=== PATIENT | female | born 1970 | race Caucasian/White ===

== ENCOUNTER 2024-02-01 11:17 | Outpatient (REF) | payer BC, SELFPAY ==
[2024-02-01 14:37] LABS: MANUAL DIFF FLAG NO
[2024-02-01 14:41] LABS: Basophils Absolute Auto 0.1 X10*3/uL (0.0-0.2); Basophils Percent Auto 0.9 % (0-2); Eosinophils Absolute Auto 0.1 X10*3/uL (0.0-0.4); Eosinophils Percent Auto 2.4 % (0-4); Hematocrit 38.4 % (37.0-47.0); Hemoglobin 13.3 g/dl (12.0-16.0); Imm Gran Abs Auto 0.01 X10*3/uL (0.00-0.03); Imm Gran Pct Auto 0.2 % (0.0-0.4); Lymphocytes Percent Auto 55.7 % (20-40); Mean Corpuscular HGB Conc 34.6 g/dl (31.0-35.0); Mean Corpuscular Hemoglobin 32.1 pg (27.0-33.0); Mean Corpuscular Volume 92.8 fL (80.0-98.0); Monocytes Absolute Auto 0.3 X10*3/uL (0.1-1.2); Monocytes Percent Auto 5.8 % (2-11); Neutrophils Absolute Auto 1.9 x10*3/uL (2.0-8.3); Platelet Count 188 X10*3/uL (160-400); Red Blood Count 4.14 X10*6/uL (4.20-5.50); Red Cell Distribution Width 11.9 % (11.0-16.0); White Blood Count 5.3 X10*3/uL (4.8-10.8)
[2024-02-01 14:58] LABS: Alanine Aminotransferase 11 U/L (0-31); Albumin Level 4.4 g/dL (3.5-5.0); Alkaline Phosphatase 65 U/L (39-117); Anion Gap 12 (12-20); Aspartate Amino Transferase 12 U/L (5-31); Bilirubin Direct 0.2 mg/dL (0.0-0.5); Bilirubin Total 0.5 mg/dL (0.0-1.0); Blood Urea Nitrogen 15 mg/dL (9-16); Calcium 9.3 mg/dL (8.4-10.2); Carbon Dioxide 25 mmol/L (22-29); Chloride 108 mmol/L (96-108); Cholesterol 165 mg/dL (<200); Estimated Glomerular Filt Rate 52; Glucose Random 96 mg/dL (60-115); HDL Cholesterol 79 mg/dL (>40); LDL Cholesterol Calculated 73 mg/dL (<100); Potassium 3.7 mmol/L (3.3-5.1); Sodium 141 mmol/L (135-145); Total Protein 6.6 g/dL (6.5-8.0); Triglycerides 68 mg/dL (<150)
[2024-02-01 15:14] LABS: Cortisol Random 8.2 ug/dL
[2024-02-01 15:17] LABS: Vitamin B12 868 pg/mL (200-900)
[2024-02-01 15:20] LABS: Thyroid Stimulating Hormone 1.26 uIU/mL (0.32-4.0); Vitamin D 25-OH Total 31.2 ng/mL (>30)
== END 2024-02-01 11:18 | disposition home or self-care (01) ==
LOC: HO.CHCLDS 11:17
PROVIDERS: Visit Provider Student in an Organized Health Care Education/Training Program
DX: Z13.6 Encounter for screening for cardiovascular disorders (principal); R53.83 Other fatigue; F90.2 Attention-deficit hyperactivity disorder, combined type; E55.9 Vitamin D deficiency, unspecified
CPT/HCPCS: 36415; 80048; 80061; 80076; 82306; 82533; 82607; 84443; 85025

== ENCOUNTER 2024-02-05 10:59 | Outpatient (REF) | payer BC, SELFPAY ==
[2024-02-06 03:59] LABS: ~Hepatitis C Antibody Nonreactive (Nonreactive)
[2024-02-08 17:44] LABS: HIV RNA PCR Qn Copies Not Detected Copies/mL; HIV RNA PCR Qn Log Copies Not Detected Log cps/mL
== END 2024-02-05 11:00 | disposition home or self-care (01) ==
LOC: HO.CHCLDS 10:59
PROVIDERS: Visit Provider Student in an Organized Health Care Education/Training Program
DX: Z00.00 Encounter for general adult medical examination without abnormal findings (principal)
CPT/HCPCS: 36415; 86803; 87536; 87900

== ENCOUNTER 2024-02-18 10:05 | Outpatient (REF) | payer BC, SELFPAY ==
[2024-02-18 14:43] LABS: MANUAL DIFF FLAG NO
[2024-02-18 14:54] LABS: Basophils Absolute Auto 0.1 X10*3/uL (0.0-0.2); Basophils Percent Auto 1.1 % (0-2); Eosinophils Absolute Auto 0.2 X10*3/uL (0.0-0.4); Eosinophils Percent Auto 2.8 % (0-4); Hematocrit 37.4 % (37.0-47.0); Hemoglobin 12.8 g/dl (12.0-16.0); Imm Gran Abs Auto 0.01 X10*3/uL (0.00-0.03); Imm Gran Pct Auto 0.2 % (0.0-0.4); Lymphocytes Absolute Auto 3.5 X10*3/uL (1.2-4.9); Lymphocytes Percent Auto 56.2 % (20-40); Mean Corpuscular HGB Conc 34.2 g/dl (31.0-35.0); Mean Corpuscular Hemoglobin 31.8 pg (27.0-33.0); Mean Platelet Volume 10.2 fL (9.4-12.3); Monocytes Absolute Auto 0.4 X10*3/uL (0.1-1.2); Monocytes Percent Auto 5.7 % (2-11); Neutrophils Absolute Auto 2.1 x10*3/uL (2.0-8.3); Platelet Count 186 X10*3/uL (160-400); Red Blood Count 4.02 X10*6/uL (4.20-5.50); White Blood Count 6.2 X10*3/uL (4.8-10.8)
[2024-02-18 15:49] LABS: Ferritin 60 ng/mL (10-250)
== END 2024-02-18 10:06 | disposition home or self-care (01) ==
LOC: HO.CHCLDS 10:05
PROVIDERS: Visit Provider Student in an Organized Health Care Education/Training Program
DX: E83.110 Hereditary hemochromatosis (principal)
CPT/HCPCS: 36415; 82728; 85025

== ENCOUNTER → 2024-03-11 09:57 | Outpatient (BNV) | payer BC, SELFPAY | PROVIDERS: PCP Student in an Organized Health Care Education/Training Program; Visit Provider Internal Medicine Medical Oncology | DX: E83.119 Hemochromatosis, unspecified (principal) | CPT/HCPCS: 99204; 99213 ==

== ENCOUNTER 2024-03-20 10:27 | Outpatient (REF) | payer BC, SELFPAY | END 2024-03-20 10:28 | disposition home or self-care (01) | LOC: HO.BBR 10:27 | PROVIDERS: PCP Student in an Organized Health Care Education/Training Program; Visit Provider Internal Medicine Medical Oncology | DX: Z13.89 Encounter for screening for other disorder (principal) ==

== ENCOUNTER 2024-05-30 11:24 | Outpatient (REF) | payer BC, SELFPAY ==
[2024-05-30 12:19] LABS: MANUAL DIFF FLAG NO
[2024-05-30 12:25] LABS: Basophils Absolute Auto 0.1 X10*3/uL (0.0-0.2); Basophils Percent Auto 0.9 % (0-2); Eosinophils Absolute Auto 0.2 X10*3/uL (0.0-0.4); Hematocrit 35.4 % (37.0-47.0); Hemoglobin 12.4 g/dl (12.0-16.0); Imm Gran Abs Auto 0.01 X10*3/uL (0.00-0.03); Imm Gran Pct Auto 0.2 % (0.0-0.4); Lymphocytes Absolute Auto 2.8 X10*3/uL (1.2-4.9); Lymphocytes Percent Auto 49.4 % (20-40); Mean Corpuscular Volume 94.1 fL (80.0-98.0); Mean Platelet Volume 9.9 fL (9.4-12.3); Monocytes Absolute Auto 0.5 X10*3/uL (0.1-1.2); Monocytes Percent Auto 7.9 % (2-11); Neutrophils Absolute Auto 2.2 x10*3/uL (2.0-8.3); Neutrophils Percent Auto 37.6 % (45-73); Platelet Count 161 X10*3/uL (160-400); Red Blood Count 3.76 X10*6/uL (4.20-5.50); Red Cell Distribution Width 12.2 % (11.0-16.0); White Blood Count 5.7 X10*3/uL (4.8-10.8)
[2024-05-30 13:43] LABS: Ferritin 37 ng/mL (10-250); Iron 169 mcg/dL (30-160); Percent Iron Saturation 65 % (15-50); Total Iron Binding Capacity 260 mcg/dL (228-428); Unsaturated Iron Binding 91 ug/dL
== END 2024-05-30 11:25 | disposition home or self-care (01) ==
LOC: HO.BBR 11:24
PROVIDERS: PCP Student in an Organized Health Care Education/Training Program; Visit Provider Internal Medicine Medical Oncology
DX: E83.110 Hereditary hemochromatosis (principal)
CPT/HCPCS: 36415; 82728; 83540; 85025

== ENCOUNTER 2024-06-30 10:14 | Outpatient (REF) | payer BC, SELFPAY ==
[2024-06-30 10:44] LABS: MANUAL DIFF FLAG NO
[2024-06-30 10:49] LABS: Basophils Absolute Auto 0.1 X10*3/uL (0.0-0.2); Eosinophils Absolute Auto 0.2 X10*3/uL (0.0-0.4); Eosinophils Percent Auto 3.7 % (0-4); Hematocrit 39.8 % (37.0-47.0); Hemoglobin 13.9 g/dl (12.0-16.0); Imm Gran Abs Auto 0.01 X10*3/uL (0.00-0.03); Imm Gran Pct Auto 0.2 % (0.0-0.4); Lymphocytes Absolute Auto 2.8 X10*3/uL (1.2-4.9); Lymphocytes Percent Auto 53.8 % (20-40); Mean Corpuscular HGB Conc 34.9 g/dl (31.0-35.0); Mean Corpuscular Volume 94.5 fL (80.0-98.0); Mean Platelet Volume 9.7 fL (9.4-12.3); Monocytes Absolute Auto 0.4 X10*3/uL (0.1-1.2); Monocytes Percent Auto 7.5 % (2-11); Neutrophils Absolute Auto 1.8 x10*3/uL (2.0-8.3); Neutrophils Percent Auto 33.8 % (45-73); Platelet Count 159 X10*3/uL (160-400); Red Blood Count 4.21 X10*6/uL (4.20-5.50); Red Cell Distribution Width 12.1 % (11.0-16.0); White Blood Count 5.2 X10*3/uL (4.8-10.8)
[2024-06-30 11:28] LABS: Iron 143 mcg/dL (30-160); Percent Iron Saturation 49 % (15-50); Total Iron Binding Capacity 294 mcg/dL (228-428); Unsaturated Iron Binding 151 ug/dL
[2024-06-30 11:40] LABS: Ferritin 35 ng/mL (10-250)
== END 2024-06-30 10:15 | disposition home or self-care (01) ==
LOC: HO.BBR 10:14
PROVIDERS: PCP Student in an Organized Health Care Education/Training Program; Visit Provider Internal Medicine Medical Oncology
DX: E83.110 Hereditary hemochromatosis (principal)
CPT/HCPCS: 36415; 82728; 83540; 85025

== ENCOUNTER 2024-07-31 10:20 | Outpatient (REF) | payer BC, SELFPAY ==
[2024-07-31 10:37] LABS: MANUAL DIFF FLAG NO
[2024-07-31 10:39] LABS: Basophils Absolute Auto 0.1 X10*3/uL (0.0-0.2); Basophils Percent Auto 1.3 % (0-2); Eosinophils Absolute Auto 0.2 X10*3/uL (0.0-0.4); Eosinophils Percent Auto 3.6 % (0-4); Hematocrit 36.8 % (37.0-47.0); Hemoglobin 12.9 g/dl (12.0-16.0); Imm Gran Abs Auto 0.02 X10*3/uL (0.00-0.03); Imm Gran Pct Auto 0.3 % (0.0-0.4); Lymphocytes Absolute Auto 3.4 X10*3/uL (1.2-4.9); Lymphocytes Percent Auto 52.9 % (20-40); Mean Corpuscular HGB Conc 35.1 g/dl (31.0-35.0); Mean Corpuscular Hemoglobin 32.5 pg (27.0-33.0); Mean Corpuscular Volume 92.7 fL (80.0-98.0); Mean Platelet Volume 9.7 fL (9.4-12.3); Monocytes Absolute Auto 0.3 X10*3/uL (0.1-1.2); Monocytes Percent Auto 5.4 % (2-11); Neutrophils Absolute Auto 2.3 x10*3/uL (2.0-8.3); Neutrophils Percent Auto 36.5 % (45-73); Platelet Count 169 X10*3/uL (160-400); Red Blood Count 3.97 X10*6/uL (4.20-5.50); Red Cell Distribution Width 11.9 % (11.0-16.0); White Blood Count 6.4 X10*3/uL (4.8-10.8)
[2024-07-31 11:17] LABS: Iron 78 mcg/dL (30-160); Percent Iron Saturation 28 % (15-50); Total Iron Binding Capacity 275 mcg/dL (228-428); Unsaturated Iron Binding 197 ug/dL
[2024-07-31 11:34] LABS: Ferritin 13 ng/mL (10-250)
== END 2024-07-31 10:21 | disposition home or self-care (01) ==
LOC: HO.BBR 10:20
PROVIDERS: PCP Student in an Organized Health Care Education/Training Program; Visit Provider Internal Medicine Medical Oncology
DX: E83.110 Hereditary hemochromatosis (principal)
CPT/HCPCS: 36415; 82728; 83540; 85025

== ENCOUNTER 2024-09-10 10:10 | Outpatient (REF) | payer BC, SELFPAY ==
[2024-09-10 10:34] LABS: MANUAL DIFF FLAG NO
[2024-09-10 11:11] LABS: Basophils Absolute Auto 0.1 X10*3/uL (0.0-0.2); Basophils Percent Auto 1.2 % (0-2); Eosinophils Absolute Auto 0.3 X10*3/uL (0.0-0.4); Eosinophils Percent Auto 4.9 % (0-4); Hematocrit 35.9 % (37.0-47.0); Hemoglobin 12.2 g/dl (12.0-16.0); Imm Gran Abs Auto 0.02 X10*3/uL (0.00-0.03); Imm Gran Pct Auto 0.4 % (0.0-0.4); Lymphocytes Absolute Auto 2.6 X10*3/uL (1.2-4.9); Mean Corpuscular Hemoglobin 31.6 pg (27.0-33.0); Monocytes Absolute Auto 0.3 X10*3/uL (0.1-1.2); Monocytes Percent Auto 5.6 % (2-11); Neutrophils Percent Auto 37.9 % (45-73); Platelet Count 187 X10*3/uL (160-400); Red Blood Count 3.86 X10*6/uL (4.20-5.50); Red Cell Distribution Width 11.9 % (11.0-16.0); White Blood Count 5.1 X10*3/uL (4.8-10.8)
[2024-09-10 12:44] LABS: Iron 66 mcg/dL (30-160); Percent Iron Saturation 21 % (15-50); Total Iron Binding Capacity 320 mcg/dL (228-428); Unsaturated Iron Binding 254 ug/dL
[2024-09-10 13:08] LABS: Ferritin 12 ng/mL (10-250)
== END 2024-09-10 10:11 | disposition home or self-care (01) ==
LOC: HO.BBR 10:10
PROVIDERS: PCP Student in an Organized Health Care Education/Training Program; Visit Provider Internal Medicine Medical Oncology
DX: E83.110 Hereditary hemochromatosis (principal)
CPT/HCPCS: 36415; 82728; 83540; 85025

== ENCOUNTER 2024-11-24 10:08 | Outpatient (REF) | payer BC, SELFPAY ==
[2024-11-24 10:27] LABS: MANUAL DIFF FLAG NO
[2024-11-24 10:28] LABS: Basophils Absolute Auto 0.1 X10*3/uL (0.0-0.2); Eosinophils Absolute Auto 0.2 X10*3/uL (0.0-0.4); Eosinophils Percent Auto 3.9 % (0-4); Hematocrit 36.8 % (37.0-47.0); Hemoglobin 12.6 g/dl (12.0-16.0); Imm Gran Abs Auto 0.01 X10*3/uL (0.00-0.03); Imm Gran Pct Auto 0.2 % (0.0-0.4); Lymphocytes Percent Auto 49.8 % (20-40); Mean Corpuscular HGB Conc 34.2 g/dl (31.0-35.0); Mean Corpuscular Hemoglobin 30.6 pg (27.0-33.0); Mean Corpuscular Volume 89.3 fL (80.0-98.0); Mean Platelet Volume 9.4 fL (9.4-12.3); Monocytes Absolute Auto 0.4 X10*3/uL (0.1-1.2); Monocytes Percent Auto 6.4 % (2-11); Neutrophils Absolute Auto 2.4 x10*3/uL (2.0-8.3); Neutrophils Percent Auto 38.7 % (45-73); Platelet Count 193 X10*3/uL (160-400); Red Blood Count 4.12 X10*6/uL (4.20-5.50); White Blood Count 6.1 X10*3/uL (4.8-10.8)
[2024-11-24 11:14] LABS: Iron 46 mcg/dL (30-160); Percent Iron Saturation 15 % (15-50); Total Iron Binding Capacity 305 mcg/dL (228-428); Unsaturated Iron Binding 259 ug/dL
[2024-11-24 11:32] LABS: Ferritin 6 ng/mL (10-250)
== END 2024-11-24 10:09 | disposition home or self-care (01) ==
LOC: HO.BBR 10:08
PROVIDERS: PCP Student in an Organized Health Care Education/Training Program; Visit Provider Internal Medicine Medical Oncology
DX: E83.110 Hereditary hemochromatosis (principal)
CPT/HCPCS: 36415; 82728; 83540; 85025

== ENCOUNTER 2025-01-13 09:47 | Outpatient (REF) | payer BC, SELFPAY ==
[2025-01-13 10:01] LABS: MANUAL DIFF FLAG NO
[2025-01-13 10:05] LABS: Basophils Absolute Auto 0.1 X10*3/uL (0.0-0.2); Basophils Percent Auto 0.9 % (0-2); Eosinophils Absolute Auto 0.2 X10*3/uL (0.0-0.4); Hematocrit 34.7 % (37.0-47.0); Hemoglobin 11.5 g/dl (12.0-16.0); Imm Gran Abs Auto 0.01 X10*3/uL (0.00-0.03); Imm Gran Pct Auto 0.2 % (0.0-0.4); Lymphocytes Absolute Auto 2.7 X10*3/uL (1.2-4.9); Lymphocytes Percent Auto 48.1 % (20-40); Mean Corpuscular HGB Conc 33.1 g/dl (31.0-35.0); Mean Corpuscular Hemoglobin 29.2 pg (27.0-33.0); Mean Corpuscular Volume 88.1 fL (80.0-98.0); Mean Platelet Volume 9.7 fL (9.4-12.3); Monocytes Absolute Auto 0.4 X10*3/uL (0.1-1.2); Monocytes Percent Auto 6.8 % (2-11); Neutrophils Absolute Auto 2.3 x10*3/uL (2.0-8.3); Platelet Count 218 X10*3/uL (160-400); Red Blood Count 3.94 X10*6/uL (4.20-5.50); Red Cell Distribution Width 12.7 % (11.0-16.0); White Blood Count 5.7 X10*3/uL (4.8-10.8)
[2025-01-13 10:40] LABS: Iron 57 mcg/dL (30-160); Percent Iron Saturation 17 % (15-50); Total Iron Binding Capacity 345 mcg/dL (228-428); Unsaturated Iron Binding 288 ug/dL
[2025-01-13 10:55] LABS: Ferritin 7 ng/mL (10-250)
--- OUTSIDE RECORDS SUMMARY | 2025-01-13 11:16 | XMS_ITS | Encounter Summary ---
Author Organization [employer] Address [address] [facility] 7t [place] [address] Care Team Providers Care Wooden Fence Erector Name Role Phone Kimberly Spear MD Primary Care Provider [phone] Encounter Details Date Type Department Care Team (Late st Contact Info) Description 01/05/2023 Orders Only [facility] CH[facility] MED & PEDS [address] [place], [place] [phone] Kimberly Spear MD [address] [place] [address] Attention deficit hyperactivity disorder (ADHD), predominantly inattentive type; Persistent depressive disorder Social History Tobacco Use Types Packs/Day Years Used Date Smoking Tobacco: Never Assessed Comments Unknown Sex and Gender Information Value Date Recorded Sex Assigned at Female 09/11/2022 10:37 AM EDT Legal Sex Female 10:37 AM EDT Gender Identity Female 09/11/2022 10:37 AM EDT Sexual Orientation Straight 09/11/2022 10 :37 AM EDT documented as of this encounter Plan of Treatment Not on file documented as of this encounter Visit Diagnoses Diagnosis Attention deficit hyperactivity disorder (ADHD), predominantly inattentive type Persistent depressive disorder documented in this encounter Care Teams Wooden Fence Erector Relationship Specialty Start Date End Date Kimberly Spear MD [address] [place] [id number] PCP - General Family Medicine 09/21/20 documented as of this encounter
--- OUTSIDE RECORDS SUMMARY | 2025-01-13 11:16 | XMS_ITS | Clinical Summary ---
Author Organization [employer] Address [address] 7[address] [place] [address] Care Team Providers Care Soft Work Cigar Machine Operator Name Role Phone Kimberly Spear MD Primary Care Provider [phone] Allergies No known active allergies Medications * This document contains information received from the source organization and may not represent a complete record from that organization. methylphenidate (Ritalin) 20 MG tablet Take 1 tablet (20 mg) by mouth Once per day. 30 tablet 4 Active FLUoxetine (PROzac) 20 MG capsuleIndications :Persistent depressive disorder Take 2 capsules (40 mg) by mouth Once per day. 60 capsule 11 4 03/24/20 25 Active Methylphenidate HCl (methylphenidate ER) 36 MG 24 hr tabletIndications: Attention deficit hyperactivity disorder (ADHD), predominantly inattentive type Take 2 tablets (72 mg) by mouth Once per day. Do not crush, chew, or split. 60 tablet 5 Active Active Problems Problem Noted Date Diagnosed Date Left bundle-branch block, unspecified 03/24/2024 Attention deficit hyperactiv ity disorder (ADHD), combined type 01/01/2024 Hereditary hemochromatosis 01/01/2024 Depressive disorder 01/01/2024 Encounters Date Type Department Care Team Description 11/24/2024 Orders Only [facility] CH[facility] MED & PEDS [address] [place] [address] Kimberly Spear MD Attention deficit hyperactivity disorder (ADHD), predominantly inattentive type from Last 3 Months Immunizations Name Administration Dates Next Due Tdap 02/05/2024 Social History Tobacco Use Types Packs/Day Years Used Date Smoking Tobacco: Never Smokeless Tobacco: Never Tobacco Cessation:Counseling Given: Not Answered Alcohol Use Standard Drinks/Week Comments Never 0 (1 standard drink = 0.6 oz pur e alcohol) Depression Answer Date Recorded Patient Health Questionnaire-9 Score 4 01/01/2024 Patient Health Questionnaire-9 Score 4 01/01/2024 Last PHQ-9: Questionnaire Data Not on file 0 01/01/2024 Housing Stability Answer Date Recorded What is your housing situation today? I have tiffanie izquierdo 02/05/[address] you li ve. Do you have problems with any of the following? None of the above 02/05/2024 Food Insecurity Answer Date Recorded Within the past 12 months, y ou worried that your food would run out before you got money to buy more: Never True 02/05/2024 Within the past 12 months,th e food you bought just didn't last and you didn't have enough money to get more: Never True Transportation Answer Date Recorded In the past 12 months, has l ack of transportation kept you from medical appts, meetings, work or from getting things needed for daily living? No 02/05/2024 Utilities Answer Date Recorded In the past 12 months, has t he electric, gas, oil or water company threatened to shut off services in your home? No 02/05/2024 Depression Answer Date Recorded Patient Health Questionnaire-2 Score 2 01/01/2024 Comments Unknown Sex and Gender Information Value Date Recorded Sex Assigned at Female 09/11/2022 10:37 AM EDT Legal Sex Female 10:37 AM EDT Gender Identity Female 09/11/2022 10:37 AM EDT Sexual Orientation Straight 09/11/2022 10 :37 AM EDT Last Filed Vital Signs Vital Sign Reading Time Taken Comments Blood Pressure 165/82 02/05/2024 10:31 AM EDT Pulse 82 02/05/2024 10:31 AM EDT Temperature 36.8 ??C (98.2 ??F) 02/05/2024 10:31 AM E DT Respiratory Rate 14 02/05/2024 10:31 AM EDT Oxygen Saturation 100% 02/05/2024 10:31 AM EDT Inhaled Oxygen Concentration - - Weight 71.7 kg (158 lb) 02/05/2024 10:31 AM EDT Height - - Body Mass Index - - Plan of Treatment Health Maintenance Due Date Last Done Comments CT Colonography 1972 Colonoscopy 1972 Colorectal Cancer Screening 1972 FIT DNA/Cologuard 1972 FIT 1972 FOBT 1972 HIV Screening 1972 Sigmoidoscopy 1972 Alcohol/Substance Use Screening 1984 Family Planning (PISQ) 1987 Hepatitis B Vaccines (1 of 3 - 19+ 3-dose series) 1991 Pap Smear 1993 Cervical Cancer Screening 2002 HPV/Cotest 2002 Pneumococcal Vaccine: 50+ Years (1 of 1 - PCV) 2022 Zoster Vaccines (1 of 2) 2022 COVID-19 Vaccine ( - 2023-2 5 season) 2024 04/05/2021, 03/15/2021 Influenza Vaccine (#1) 2024 Mammogram 12/12/2024 12/12/2023 Depression Screening 01/01/2025 01/01/2024, 01/01/2024 SDOH Screening 02/04/2025 02/05/2024 Tobacco Screening 09/10/2025 09/10/2024 DTaP/Tdap/Td Vaccines (2 - T d or Tdap) 02/04/2034 02/05/2024 RSV Patients and Patients Aged 60 years or older (1 - 1-dose 75+ series) 2047 Hepatitis C Screening Completed 02/05/2024 HIB Vaccines Aged Out No longer eligi ble based on patient's age to complete this topic HPV Vaccines Aged Out No longer eligi ble based on patient's age to complete this topic Hepatitis A Vaccines Aged Out No long er eligible based on patient's age to complete this topic IPV Vaccines Aged Out No longer eligi ble based on patient's age to complete this topic Meningococcal Vaccine Aged Out No tootie sri eligible based on patient's age to complete this topic RSV under 20 months Aged Out No longe r eligible based on patient's age to complete this topic Rotavirus Vaccines Aged Out No longer eligible based on patient's age to complete this topic Procedures Procedure Name Priority Date/Time Associated Diagnosis Comments HEPATITIS C AB W/REFL TO HCV RNA, QN, PCR Routine 02/05/2024 11:01 AM EDT PE (physical exam), annual from Last 3 Months or Most Recently Relevant to Health Maintenance Results * Hepatitis C Antibody with Reflex to HCV, RNA, Quantitative, Real-Time PCR (02/05/2024 11:01 AM EDT) Hepatitis C Antibody Nonreactive Nonreactive [facility] Comment:Antibodies to HCV no t detected; does not exclude early acuteHCV infection. Blood Venous blood specimen / Unknown 02/05/2024 11:01 AM EDT 02/05/2024 2:12 PM EDT us Kimberly Spear MD LAB BLOOD ORDERABLES Final Resul t [facility] [address] [place] [address] [phone] from Last 3 Months or Most Recently Relevant to Health Maintenance Insurance [facility] Care Teams Soft Work Cigar Machine Operator Relationship Specialty Start Date End Date Kimberly Spear MD [address] [place] [id number] PCP - General Family Medicine 09/21/20
== END 2025-01-13 09:48 | disposition home or self-care (01) ==
LOC: HO.BBR 09:47
PROVIDERS: PCP Student in an Organized Health Care Education/Training Program; Visit Provider Internal Medicine Medical Oncology
DX: E83.110 Hereditary hemochromatosis (principal)
CPT/HCPCS: 36415; 82728; 83540; 85025

== ENCOUNTER 2025-03-16 10:04 | Outpatient (REF) | payer BC, SELFPAY ==
[2025-03-16 10:20] LABS: MANUAL DIFF FLAG NO
[2025-03-16 10:22] LABS: Basophils Absolute Auto 0.1 X10*3/uL (0.0-0.2); Basophils Percent Auto 1.1 % (0-2); Eosinophils Absolute Auto 0.3 X10*3/uL (0.0-0.4); Eosinophils Percent Auto 4.6 % (0-4); Hematocrit 36.3 % (37.0-47.0); Hemoglobin 12.1 g/dl (12.0-16.0); Lymphocytes Absolute Auto 3.3 X10*3/uL (1.2-4.9); Lymphocytes Percent Auto 52.1 % (20-40); Mean Corpuscular HGB Conc 33.3 g/dl (31.0-35.0); Mean Corpuscular Hemoglobin 29.2 pg (27.0-33.0); Mean Corpuscular Volume 87.7 fL (80.0-98.0); Mean Platelet Volume 9.9 fL (9.4-12.3); Monocytes Absolute Auto 0.4 X10*3/uL (0.1-1.2); Monocytes Percent Auto 6.2 % (2-11); Neutrophils Absolute Auto 2.3 x10*3/uL (2.0-8.3); Platelet Count 194 X10*3/uL (160-400); Red Blood Count 4.14 X10*6/uL (4.20-5.50); Red Cell Distribution Width 13.8 % (11.0-16.0); White Blood Count 6.3 X10*3/uL (4.8-10.8)
--- OUTSIDE RECORDS SUMMARY | 2025-03-16 11:22 | XMS_ITS | Clinical Summary ---
Author Organization [employer] Address [address] [facility] 7t [place] [address] Care Team Providers Care Automation Engineering Technician Name Role Phone Kimberly Spear MD Primary Care Provider Allergies No known active allergies Medications * [...] Encounters Date Type Department Care Team Description 02/12/2025 Orders Only [facility] MED & PEDS [address] [place], [place] [phone] [place] 01/28/2025 Telephone [facility] MED & PEDS [address] [place], [place] [phone] Kimberly Spear MD from Last 3 Months Immunizations Name Administration [...] of 3 - 19+ 3-dose series) 1991 Pneumococcal Vaccine: 50+ Years (1 of 1 - PCV) 2022 Zoster Vaccines (1 of 2) 2022 COVID-19 Vaccine (2023-2 5 season) 2024 04/05/2021, 03/15/2021 Influenza Vaccine (#1) 2024 Mammogram 12/12/2024 12/12/2023 Depression Screening 01/01/2025 01/01/2024, 01/01/2024 SDOH Screening 02/04/2025 02/05/2024 Tobacco Screening 09/10/2025 09/10/2024 Cervical Cancer Screening 12/21/2026 HPV/Cotest 12/21/2026 12/21/2021 Pap Smear 12/21/2026 12/21/2021 DTaP/Tdap/Td Vaccines (2 - T d or [...] 11:01 AM EDT PE (physical exam), annual PAP/HPV Routine 12/21/2021 12:00 AM EST from Last 3 Months or Most Recently Relevant to Health Maintenance Results * Hepatitis C Antibody with Reflex to HCV, RNA, Quantitative, Real-Time PCR (02/05/2024 11:01 AM EDT) Hepatitis C Antibody Nonreactive Nonreactive [facility] Comment:Antibodies to HCV no t detected; does not exclude early acuteHCV infection. Blood Venous blood specimen / Unknown 02/05/2024 11:01 AM EDT 02/05/2024 2:12 PM EDT Kimberly Spear MD LAB BLOOD ORDERABLES Final Resul t [facility] [address] [place] [address] [phone] * PAP/HPV (12/21/2021 12:00 AM EST) Pap Smear 1. NILM 1. NILM [facility] HPV Not Detected Undetected, Indeterminat e, Quantitative , Not Detected [facility] Historical Provider HEALTH MAINTENANCE Edited Result - Final [facility] [address] [place] [phone] from Last 3 Months or Most Recently Relevant to Health Maintenance Insurance [facility] Address[facility] [id number] [place] [address] Care Teams Automation Engineering Technician Relationship Specialty Start Date End Date Kimberly Spear MD [address] [place] [phone] PCP - General Family Medicine 09/21/20
--- OUTSIDE RECORDS SUMMARY | 2025-03-16 11:22 | XMS_ITS | Encounter Summary ---
Author Organization [employer] Address [address] [facility] 7t [place] [address] Care Team Providers Care Gluing Machine Adjuster Name Role Phone Kimberly Spear MD Primary Care Provider [phone] Encounter Details Date Type Department Care Team (Late st Contact Info) Description 01/05/2023 Orders Only [facility] CHC MED & PEDS [address] [place], [place] [phone] Kimberly Spear MD [address] [place] [address] Attention deficit hyperactivity disorder (ADHD), predominantly inattentive [...] disorder documented in this encounter Care Teams Gluing Machine Adjuster Relationship Specialty Start Date End Date Kimberly Spear MD [address] [place] [id number] PCP - General Family Medicine 09/21/20 documented as of this encounter
--- OUTSIDE RECORDS SUMMARY | 2025-03-16 11:22 | XMS_ITS | Encounter Summary ---
Author Organization [employer] Address [address] [facility] 7[address] [place] [address] Care Team Providers Care Engineering Systems Analyst Name Role Phone Kimberly Spear MD Primary Care Provider [phone] Encounter Details Date Type Department Care Team (Late st Contact Info) Description 02/12/2025 Orders Only [facility] CHC MED & PEDS [address] [place] [address] [place] Social History Tobacco Use Types Packs/Day Years Used Date Smoking Tobacco: Never Smokeless Tobacco: Never Alcohol Use Standard Drinks/Week Comments Never 0 [...] on file documented as of this encounter Procedures Procedure Name Priority Date/Time Associated Diagnosis Comments PAP/HPV Routine 12/21/2021 12:00 AM EST documented in this encounter Results * HM PAP/HPV (12/21/2021 12:00 AM EST) Pap Smear 1. NILM 1. NILM [facility] HPV Not Detected Undetected, Indeterminat e, Quantitative , Not Detected [facility] us Historical Provider [facility] MAINTENANCE Edited Result - Final [facility] [address] [place] [address] documented in this encounter Visit Diagnoses Not on filedocumented in this encounter Additional Health Concerns Assessment Noted Time PHQ-9 Depression Total Score: 4 01/01/20 24 11:07 AM EST documented as of this encounter Care Teams Engineering Systems Analyst Relationship Specialty Start Date End Date Kimberly Spear MD [address] [place] [phone] PCP - General Family Medicine 09/21/20 documented as of this encounter
[2025-03-16 11:35] LABS: Ferritin 8 ng/mL (10-250); Iron 77 mcg/dL (30-160); Percent Iron Saturation 24 % (15-50); Total Iron Binding Capacity 322 mcg/dL (228-428); Unsaturated Iron Binding 245 ug/dL
== END 2025-03-16 10:05 | disposition home or self-care (01) ==
LOC: HO.BBR 10:04
PROVIDERS: PCP Student in an Organized Health Care Education/Training Program; Visit Provider Internal Medicine Medical Oncology
DX: E83.110 Hereditary hemochromatosis (principal)
CPT/HCPCS: 36415; 82728; 83540; 85025

== ENCOUNTER 2025-05-22 14:02 | Outpatient (REF) | payer BC, SELFPAY ==
--- OUTSIDE RECORDS SUMMARY | 2025-05-22 14:06 | XMS_ITS | Clinical Summary ---
Author Organization [facility] Address [address] [place] [address] Care Team Providers Care Paint Brush Maker Name Role Phone Diann Pantoja MD Primary Care Provider Encounters Date Type Department Care Team Description 05/22/2025 Telephone [facility] Cardiology [facility] [address] [place] [address] Kimberly Spear MD from Last 3 Months Social History Tobacco Use Types Packs/Day Years Used Date Smoking Tobacco: Never Assessed Comments Unknown Sex and Gender Information Value Date Recorded Sex Assigned at Not on file Legal Sex Female 8:08 AM EST Gender Identity Not on file Sexual Orientation Not on file Plan of Treatment Health Maintenance Due Date Last Done Comments Breast Cancer Screening 1972 DTaP,Tdap,and Td Vaccines (1 - Tdap) 1991 Hepatitis B Vaccines (1 of 3 - 19+ 3-dose series) 1991 Cervical Cancer Screening: P ap Smear 1993 Pneumococcal Vaccine: 50+ Ye ars (1 of 1 - PCV) 2022 Zoster Vaccines (1 of 2) 2022 Colorectal Cancer Screening: Colonoscopy 10/15/2022 Depression Screening 10/15/2022 HIV Screening 10/15/2022 Hepatitis C Screening 10/15/2022 Social Influencers of Health Screening 10/15/2022 COVID-19 Vaccine (1 - 2023-2 5 season) 2024 Influenza Vaccine (#1) 2025 HIB Vaccines Aged Out No longer eligi [...] on patient's age to complete this topic MMR Vaccines Aged Out No longer eligi ble based on patient's age to complete this topic Meningococcal ACWY Vaccine Aged Out N o longer eligible based on patient's age to complete this topic Meningococcal B Vaccine Aged Out No l onger eligible based on patient's age to complete this topic RSV Immunization Patients Un shanthi 20 months Aged Out No longer eligible b ased on patient's age to complete this topic Varicella Vaccines Aged Out No longer eligible based on patient's age to complete this topic Care Teams Paint Brush Maker Relationship Specialty Start Date End Date Diann Pantoja MD PCP - General Internal Medicine 12/15/19
--- OUTSIDE RECORDS SUMMARY | 2025-05-22 14:06 | XMS_ITS | Encounter Summary ---
Author Organization [employer] Address [address] [facility] 7t [place] [address] Care Team Providers Care Web Developer Name Role Phone Kimberly Spear MD Primary Care Provider [phone] Encounter Details Date Type Department Care Team (Late st Contact Info) Description 01/05/2023 Orders Only [facility] CHC MED & PEDS [address] [place], [place] [phone] Kimberly Spear MD [address] [place] [address] Attention deficit hyperactivity disorder (ADHD), predominantly inattentive [...] disorder documented in this encounter Care Teams Web Developer Relationship Specialty Start Date End Date Kimberly Spear MD [address] [place] [phone] PCP - General Family Medicine 09/21/20 documented as of this encounter
[2025-05-22 14:20] LABS: MANUAL DIFF FLAG NO
[2025-05-22 14:22] LABS: Hematocrit 33.4 % (37.0-47.0); Hemoglobin 11.2 g/dl (12.0-16.0); Imm Gran Abs Auto 0.01 X10*3/uL (0.00-0.03); Imm Gran Pct Auto 0.2 % (0.0-0.4); Lymphocytes Absolute Auto 3.2 X10*3/uL (1.2-4.9); Mean Corpuscular HGB Conc 33.5 g/dl (31.0-35.0); Mean Corpuscular Hemoglobin 29.2 pg (27.0-33.0); Mean Corpuscular Volume 87.0 fL (80.0-98.0); NRBC Abs Auto 0.000 X10*3/uL (0.0-0.012); NRBC Pct Auto 0.0 /100WBC (0.0-0.2); Platelet Count 204 X10*3/uL (160-400); Red Blood Count 3.84 X10*6/uL (4.20-5.50); White Blood Count 6.1 X10*3/uL (4.8-10.8)
[2025-05-22 15:12] LABS: Iron 100 mcg/dL (30-160); Percent Iron Saturation 28 % (15-50); Total Iron Binding Capacity 356 mcg/dL (228-428); Unsaturated Iron Binding 256 ug/dL
[2025-05-22 15:32] LABS: Ferritin 9 ng/mL (10-250)
== END 2025-05-22 14:03 | disposition home or self-care (01) ==
LOC: HO.BBR 14:02
PROVIDERS: PCP Student in an Organized Health Care Education/Training Program; Visit Provider Internal Medicine Medical Oncology
DX: E83.110 Hereditary hemochromatosis (principal)
CPT/HCPCS: 36415; 82728; 83540; 85025

== ENCOUNTER 2025-07-24 10:38 | Outpatient (REF) | payer BC, SELFPAY ==
[2025-07-24 10:59] LABS: MANUAL DIFF FLAG NO
[2025-07-24 11:02] LABS: Hematocrit 38.5 % (37.0-47.0); Hemoglobin 12.7 g/dl (12.0-16.0); Imm Gran Abs Auto 0.01 X10*3/uL (0.00-0.03); Imm Gran Pct Auto 0.2 % (0.0-0.4); Lymphocytes Absolute Auto 3.3 X10*3/uL (1.2-4.9); Mean Corpuscular HGB Conc 33.0 g/dl (31.0-35.0); Mean Corpuscular Hemoglobin 29.1 pg (27.0-33.0); Mean Corpuscular Volume 88.3 fL (80.0-98.0); NRBC Abs Auto 0.000 X10*3/uL (0.0-0.012); NRBC Pct Auto 0.0 /100WBC (0.0-0.2); Platelet Count 177 X10*3/uL (160-400); Red Blood Count 4.36 X10*6/uL (4.20-5.50); White Blood Count 6.0 X10*3/uL (4.8-10.8)
--- OUTSIDE RECORDS SUMMARY | 2025-07-24 12:14 | XMS_ITS | Clinical Summary ---
Author Organization [facility] [employer] [facility] Address [address] [place] [address] Phone Care Team Providers Care Instrumentation Designer Name Role Phone Kimberly Spear MD Primary Care Provider [phone] Allergies No known active allergies Medications methylphenidate (RITALIN LA) 30 mg 24 hr capsule Take 1 capsule (30 mg total) by mouth 1 (one) time each day in the morning. Do not crush or chew. Max Daily Amount: 30 mg Active docosahexaenoic acid/epa (FISH OIL ORAL) Take by mouth 1 (one) time each day. Active fexofenadine (NYDIA) 60 mg tablet Take 1 tablet (60 mg total) by mouth 1 (one) time each day. Active sacubitriL-vals ritu (ENTRESTO) 24-26 mg per tablet Take 1 tablet by mouth 2 (two) times a day. 180 tablet 1 5 07/10/20 26 Active losartan (COZAAR) 50 mg tablet Take 1 tablet (50 mg total) by mouth 1 (one) time each day. 5 07/10/20 25 Discontinu ed(Prescri jaya Discontinu ed) Active Problems Problem Noted Date Diagnosed Date LBBB (left bundle branch block) 06/08/2025 Assessment & Plan (06/09/2025 1:12 PM EDT): Orders: Ambulatory referral to Cardiology ECG [address] Angio Heart w 3D Imaging/Function; Future Encounters Date Type Department Care Team Description 07/10/2025 Telephone [facility] [address] [place] [address] Christiano Christianson MD 06/18/2025 Telephone [facility] [address] [place] [address] Christiano Christianson MD 06/09/2025 9:20 AM EDT Office Visit [facility] [address] [place] [address] Christiano Christianson MD Other cardiomyopathy (CMS/HCC V24, CMS/HCC V28) (Primary Dx); LBBB (left bundle branch block); Nonrheumatic mitral (valve) insufficiency 05/25/[address] [facility] [address] [facility] [place] [facility] [address] [place] [address] Kimberly Spear MD 05/25/[address] [facility] [address] [facility] [place] [facility] [address] [place] [address] Kimberly Spear MD 05/22/[address] [facility] [address] [facility] [place] [facility] [address] [place] [address] Kimberly Spear MD from Last 3 Months Social History Tobacco Use Types Packs/Day Years Used Date Smoking Tobacco: Never Tobacco Cessation:Counseling Given: Not Answered Alcohol Use Standard Drinks/Week Comments Yes 0 (1 standard drink = 0.6 oz pur e alcohol) 1-2 weekly Comments Unknown Sex and Gender Information Value Date Recorded Sex Assigned at Not on file Legal Sex Female 8:08 AM EST Gender Identity Not on file Sexual Orientation Not on file Obstetrics History Last Filed Vital Signs Vital Sign Reading Time Taken Comments Blood Pressure 140/86 06/09/2025 9:27 AM EDT Pulse 77 06/09/2025 9:27 AM EDT Temperature - - Respiratory Rate - - Oxygen Saturation 98% 06/09/2025 9:27 AM EDT Inhaled Oxygen Concentration - - Weight 77.1 kg (170 lb) 06/09/2025 9:27 AM EDT Height 165.1 cm (5' 5 ) 06/09/2025 9:27 AM EDT Body Mass Index 28.29 06/09/2025 9:27 AM EDT Plan of Treatment Health Maintenance Due Date Last Done Comments Breast Cancer Screening 1972 Hepatitis B Vaccines (1 of 3 - 19+ 3-dose series) 1991 Cervical Cancer Screening: P ap Smear 1993 Pneumococcal Vaccine: 50+ Years (1 of 1 - PCV) 2022 Zoster Vaccines (1 of 2) 2022 Colorectal Cancer Screening: Colonoscopy 10/15/2022 HIV Screening 10/15/2022 Social Influencers of Health Screening 10/15/2022 Depression Screening 11/12/2024 COVID-19 Vaccine (3 - 2024-2 6 season) 2025 04/05/2021, 03/15/2021 Influenza Vaccine (#1) 2025 DTaP,Tdap,and Td Vaccines (2 - Td or Tdap) 02/04/2034 02/05/2024 Hepatitis C Screening Completed 02/05/2024 HIB Vaccines [...] to complete this topic RSV Immunization Patients Under 20 months Aged Out No longer eligible b ased on patient's age to complete this topic Varicella Vaccines Aged Out No longer eligible based on patient's age to complete this topic Procedures Procedure Name Priority Date/Time Associated Diagnosis Comments ECG 12-LEAD Routine 06/09/2025 9:37 AM EDT LBBB (left bundle branch block) from Last 3 Months Results * ECG 12 lead (06/09/2025 9:37 AM EDT) Ventricular Rate ECG 77 BPM GEMUSE Atrial Rate 77 BPM GEMUSE P-R Interval 152 ms GEMUSE QRS Duration 128 ms GEMUSE Q-T Interval 412 ms GEMUSE QTc 466 ms GEMUSE P Wave [place] 67 degrees GEMUSE R [place] 8 degrees GEMUSE T [place] -101 degrees GEMUSE ECG Interpretation Normal sinus rhythm Left bundle branch block Abnormal ECG No previous ECGs available Confirmed by MD Sammy, Christiano ([id number]) on 06/09/2025 9:47:31 AM GEMUSE 06/09/2025 9:37 AM EDT 06/09/2025 9:47 AM EDT us Christiano Christianson MD ECG ORDERABLES Final Res ult GEMUSE from Last [address] [facility] Care Teams Instrumentation Designer Relationship Specialty Start Date End Date Kimberly Spear MD [address] [place] [phone] PCP - General Family Medicine 05/25/25
--- OUTSIDE RECORDS SUMMARY | 2025-07-24 12:14 | XMS_ITS | Clinical Summary ---
Author Organization [employer] Address [address] [facility] 7t [place] [address] Care Team Providers Care Silver Holloware Assembler Name Role Phone Kimberly Spear MD Primary Care Provider [phone] Allergies No known active allergies Medications * This document contains information received from the source organization and may not represent a complete record from that organization. methylphenidate (Ritalin) 20 MG tablet Take 1 tablet (20 mg) by mouth Once per day. 30 tablet 03/24/20 24 Active Methylphenidate HCl (methylphenidate ER) 36 MG 24 hr tabletIndications :Attention deficit hyperactivity disorder (ADHD), predominantly inattentive type Take 2 tablets (72 mg) by mouth Once per day. Do not crush, chew, or split. 60 tablet 07/06/20 25 025 Active Methylphenidate HCl (methylphenidate ER) 36 MG 24 hr tabletIndications :Attention deficit hyperactivity disorder (ADHD), predominantly inattentive type Take 2 tablets (72 mg) by mouth Once per day. Do not crush, chew, or split. 60 tablet 05/29/20 25 025 Discontinued(Re order (will not trigger notification to Pharmacy)) Active Problems Problem Noted Date Diagnosed Date Left bundle-branch block, unspecified 03/24/2024 Attention deficit hyperactiv ity disorder (ADHD), combined type 01/01/2024 Hereditary hemochromatosis 01/01/2024 Depressive disorder 01/01/2024 Encounters Date Type Department Care Team Description 07/06/2025 Orders Only [facility] [address] [place] [address] Kimberly Spear MD Attention deficit hyperactivity disorder (ADHD), predominantly inattentive type 07/02/2025 Orders Only [facility] [address] [place] [address] Eliana Andrews MD 06/09/2025 Orders Only [facility] [address] [place] [address] Eliana Andrews MD 05/29/2025 3:40 PM EDT Telemedicine [facility] [address] [place] [address] Kimberly Spear MD Hot flash, menopausal (Primary Dx); Attention deficit hyperactivity disorder (ADHD), predominantly inattentive type; Left bundle-branch block, unspecified; Nonrheumatic mitral valve regurgitation 05/29/2025 Travel 05/25/2025 Telephone [facility] [address] [place] [address] Kimberly Spear MD Referral 05/19/2025 Orders Only [facility] [address] [place] [address] Kimberly Spear MD Left bundle-branch block, unspecified (Primary Dx) from Last 3 Months Immunizations Immunization Administration Dates Next Due Tdap 02/05/2024 Social [...] 82 02/05/2024 10:31 AM EDT Temperature 36.8 C (98.2 F) 02/05/2024 10:31 AM EDT Respiratory Rate 14 02/05/2024 10:31 AM EDT [...] FOBT 1972 HIV Screening 1972 Sigmoidoscopy 1972 Disability Screening 1972 Alcohol/Substance Use Screening 1984 Hepatitis B Vaccines (1 of 3 - 19+ 3-dose series) 1991 Pneumococcal Vaccine: 50+ Years (1 of 2 - PCV) 1991 Zoster Vaccines (1 of 2) 2022 Depression Screening 01/01/2025 01/01/2024, 01/01/2024 SDOH Screening 02/04/2025 02/05/2024 COVID-19 Vaccine (3 - 2024-2 6 season) 2025 04/05/2021, 03/15/2021 Influenza Vaccine (#1) 2025 Tobacco Screening 09/10/2025 09/10/2024 Mammogram 06/29/2026 06/29/2025, 12/12/2023 Cervical Cancer Screening 12/21/2026 HPV/Cotest 12/21/2026 12/21/2021 [...] Procedure Name Priority Date/Time Associated Diagnosis Comments MAMMOGRAPHY Routine 06/29/2025 3:11 PM EDT ECG 12-LEAD Routine 06/09/2025 12:14 PM EDT HEPATITIS C AB W/REFL TO HCV RNA, QN, PCR Routine 02/05/2024 11:01 AM EDT PE (physical exam), annual PAP/HPV Routine 12/21/2021 12:00 AM EST from Last 3 Months or Most Recently Relevant to Health Maintenance Results * Mammography (06/29/2025 3:11 PM EDT) Anatomical Region Laterality Modality Other us Historical Provider HEALTH MAINTENANCE Final Result * ECG 12 lead (06/09/2025 12:14 PM EDT) us Historical Provider ECG ORDERABLES Final Res ult * Hepatitis C Antibody with Reflex to HCV, RNA, Quantitative, Real-Time PCR (02/05/2024 11:01 AM EDT) Hepatitis C Antibody Nonreactive Nonreactive [facility] Comment:Antibodies to HCV no t detected; does not exclude early acuteHCV infection. Blood Venous blood specimen / Unknown 02/05/2024 11:01 AM EDT 02/05/2024 2:12 PM EDT Kimberly Spear MD LAB BLOOD ORDERABLES Final Resul t [facility] [address] [place] [phone] * HM PAP/HPV (12/21/2021 12:00 AM EST) Pap Smear 1. NILM 1. NILM [facility] HPV Not Detected Undetected, Indeterminat e, Quantitative , Not Detected [facility] Historical Provider HEALTH MAINTENANCE Edited Result - Final Performing Organization Address City/[facility]/ZIP Co de Phone Number [facility] [place] [address] from Last 3 Months or Most Recently Relevant to Health Maintenance Insurance [facility] H[facility] Care Teams Silver Holloware Assembler Relationship Specialty Start Date End Date Kimberly Spear MD [address] [place] [id number] PCP - General Family Medicine 09/21/20
--- OUTSIDE RECORDS SUMMARY | 2025-07-24 12:14 | XMS_ITS | Encounter Summary ---
Author Organization [employer] Address [address] [facility] [address] [address] 7[address] [place] [address] Care Team Providers Care Auto Glass Worker Name Role Phone Kimberly Spear MD Primary Care Provider [phone] Encounter Details Date Type Department Care Team (Late st Contact Info) Description 02/12/2025 Orders Only [facility] [address] [place] [address] [place] Social History Tobacco Use Types [...] EST) Pap Smear 1. NILM 1. NILM [facility] HPV Not Detected Undetected, Indeterminat e, Quantitative , Not Detected [facility] us Historical Provider [facility] MAINTENANCE Edited Result - Final [facility] [address] [place] [address] documented in this encounter Visit Diagnoses Not on filedocumented in this encounter Additional Health Concerns Assessment Noted Time PHQ-9 Depression Total Score: 4 01/01/20 24 11:07 AM EST documented as of this encounter Care Teams Auto Glass Worker Relationship Specialty Start Date End Date Kimberly Spear MD [address] [place] [phone] PCP - General Family Medicine 09/21/20 documented as of this encounter
--- OUTSIDE RECORDS SUMMARY | 2025-07-24 12:14 | XMS_ITS | Encounter Summary ---
Author Organization [employer] Address [address] 7[address] [place] [address] Care Team Providers Care Leaflet Distributor Name Role Phone Kimberly Spear MD Primary Care Provider [phone] Encounter Details Date Type Department Care Team (Late st Contact Info) Description 07/02/2025 Orders Only [facility] [address] [place] [address] Provider, MD Eliana Social History Tobacco Use Types Packs/Day Years [...] Procedure Name Priority Date/Time Associated Diagnosis Comments HM MAMMOGRAPHY Routine 06/29/2025 3:11 PM EDT documented in this encounter Results * Hm Mammography (06/29/2025 3:11 PM EDT) Anatomical Region Laterality Modality Other Historical Provider HEALTH MAINTENANCE Final Result documented in this encounter Visit Diagnoses Not on filedocumented in this encounter Additional Health Concerns Assessment Noted Time PHQ-9 Depression Total Score: 4 01/01/20 24 11:07 AM EST documented as of this encounter Care Teams Leaflet Distributor Relationship Specialty Start Date End Date Kimberly Spear MD [address] [place] [phone] PCP - General Family Medicine 09/21/20 documented as of this encounter
--- OUTSIDE RECORDS SUMMARY | 2025-07-24 12:14 | XMS_ITS | Encounter Summary ---
Author Organization [employer] Address [address] [facility] 7t [place] [address] Care Team Providers Care Grout Machine Operator Name Role Phone Kimberly Spear MD Primary Care Provider [phone] Encounter Details Date Type Department Care Team (Late st Contact Info) Description 01/05/2023 Orders Only [facility] [address] [place], [place] [phone] Kimberly Spear MD [address] [place] [address] Attention deficit hyperactivity disorder (ADHD), predominantly inattentive [...] disorder documented in this encounter Care Teams Grout Machine Operator Relationship Specialty Start Date End Date Kimberly Spear MD [address] [place] [phone] PCP - General Family Medicine 09/21/20 documented as of this encounter
--- OUTSIDE RECORDS SUMMARY | 2025-07-24 12:14 | XMS_ITS | Encounter Summary ---
Author Organization [employer] Address [address] [facility] [address] 7[address] [place] [address] Care Team Providers Care Social And Political Studies Professor Name Role Phone Kimberly Spear MD Primary Care Provider [phone] Encounter Details Date Type Department Care Team (Late st Contact Info) Description 06/09/[address] [facility] [address] [place] [address] Provider, MD Eliana Social History Tobacco Use [...] Associated Diagnosis Comments ECG 12-LEAD Routine 06/09/2025 12:14 PM EDT documented in this encounter Results * ECG 12 lead (06/09/2025 12:14 PM EDT) us Historical Provider ECG ORDERABLES Final Res ult documented in this encounter Visit Diagnoses Not on filedocumented in this encounter Additional Health Concerns Assessment Noted Time PHQ-9 Depression Total Score: 4 01/01/20 24 11:07 AM EST documented as of this encounter Care Teams Social And Political Studies Professor Relationship Specialty Start Date End Date Kimberly Spear MD [address] [place] [phone] PCP - General Family Medicine 09/21/20 documented as of this encounter
[2025-07-24 12:28] LABS: Iron 160 mcg/dL (30-160); Percent Iron Saturation 48 % (15-50); Total Iron Binding Capacity 331 mcg/dL (228-428); Unsaturated Iron Binding 171 ug/dL
[2025-07-24 12:51] LABS: Ferritin 12 ng/mL (10-250)
== END 2025-07-24 10:39 | disposition home or self-care (01) ==
LOC: HO.BBR 10:38
PROVIDERS: PCP Student in an Organized Health Care Education/Training Program; Visit Provider Internal Medicine Medical Oncology
DX: E83.110 Hereditary hemochromatosis (principal)
CPT/HCPCS: 36415; 82728; 83540; 85025

== ENCOUNTER 2025-09-08 07:56 | Outpatient (AMB) | payer BC, SELFPAY ==
--- OUTSIDE RECORDS SUMMARY | 2025-09-04 23:59 | XMS_ITS | Continuity of Care Document ---
Author Organization [facility] Address [address] [facility] 2nd Floor [address] [place] [address]- [facility] Name Relationship Address Phone BALAJI RAYGOZA Personal Relationship Unknown Samia vailable JUAN RAYGOZA Personal Relationship Unknown Un available JARET, JUAN Personal Relationship Unknown Un available JARET, BALAJI spouse Unknown Unavailable JARET, BALAJI Personal Relationship Unknown Samia vailable JARET, BALAJI spouse Unknown Unavailable JARET, BALAJI Personal Relationship Unknown Samia vailable JARET, BALAJI Personal Relationship Unknown Samia vailable Care Team Providers Care Examination Proctor Name Role Phone Bibi DOMINGUEZ, Aleida Chris Primary Care Physician Encounter [facility] Date(s): 08/05/25 - 09/04/25 [facility] [address] [place] [address]- Attending Physician: Caitlin Bell Admitting Physician: Caitlin Bell Referring Physician: Caitlin Bell Encounter Type: Triage Allergies, Adverse Reactions, Alerts No Known Allergies Medications Corie By Mouth, 0 Refills, Maintenance, 05/08/19 1:53:17 PM EDT Start Date: 05/08/19 Status: Ordered Medication Dispense Status: Completed Total Allowed Fills: 1 Fills Dispensed: 0 Fish Oil By Mouth, 0 Refills, Maintenance, 05/08/19 1:53:13 PM EDT Start Date: 05/08/19 Status: Ordered Medication Dispense Status: Completed Total Allowed Fills: 1 Fills Dispensed: 0 FLUoxetine 20 mg oral tablet 1 tablet = 20 mg, By Mouth, Daily, # 30 tablet, 0 Refills, Maintenance, 04/30/24 2:45:00 PM EDT, Tablet, Partial fill upon patient request if the prescription is for a schedule II opioid drug. Start Date: 04/30/24 Status: Ordered Medication Dispense Status: Completed Quantity: 30.0 Unit: tablet Total Allowed Fills: 1 Fills Dispensed: 0 Liletta 52 mg intrauterine device 1 each = 52 mg, Once, 0 Refills, Maintenance, 02/15/21 11:45:00 AM EDT, Partial fill upon patient request if the prescription is for a schedule II opioid drug. Start Date: 02/15/21 Status: Ordered Medication Dispense Status: Completed Total Allowed Fills: 1 Fills Dispensed: 0 losartan 50 mg oral tablet 50 mg, 1, tablet, By Mouth, Daily, # 90 tablet, Refills 3, Tot. Refills 3, Maintenance, 05/05/25 11:55:00 AM EDT, Route to Pharmacy Electronically, [facility]/pharmacy #[id number], Partial fill upon patient request if the prescription is for a schedule II opioid drug., 165, cm, 05/05/25 11:47:00 EDT, Height Start Date: 05/05/25 Status: Ordered Medication Dispense Status: Completed Quantity: 90.0 Unit: tablet Total Allowed Fills: 4 Fills Dispensed: 0 methylphenidate 20 mg oral tablet TAKE 1 TABLET BY MOUTH 3 TIMES A DAY Start Date: 01/27/20 Status: Ordered Medication Dispense Status: Completed Total Allowed Fills: 1 Fills Dispensed: 0 methylphenidate 36 mg oral tablet, extended release 1 tablet = 36 mg, By Mouth, Daily in AM, 0 Refills, Maintenance, 04/30/24 2:45:00 PM EDT, ER Tablet,Partial fill upon patient request if the prescription is for a schedule II opioid drug. Start Date: 04/30/24 Status: Ordered Medication Dispense Status: Completed Total Allowed Fills: 1 Fills Dispensed: 0 MetroGel 1% topical gel 1 application, Topically, Daily, # 60 Gm, 1 Refills, Maintenance, 06/10/19 9:05:51 AM EDT, Gel, [facility]/pharmacy #[id number], 1 application Topically Daily Start Date: 06/10/19 Status: Ordered Medication Dispense Status: Completed Quantity: 60.0 Unit: g Total Allowed Fills: 2 Fills Dispensed: 0 Multivitamin Daily, 0 Refills, Maintenance, 05/08/19 1:53:08 PM EDT Start Date: 05/08/19 Status: Ordered Medication Dispense Status: Completed Total Allowed Fills: 1 Fills Dispensed: 0 Probiotic Formula (Bacillus Coagulans) 1 capsule, By Mouth, Daily, 0 Refills, Maintenance, 05/08/19 1:53:27 PM EDT Start Date: 05/08/19 Status: Ordered Medication Dispense Status: Completed Total Allowed Fills: 1 Fills Dispensed: 0 Vitamin B Complex oral tablet, extended release By Mouth, Daily, 0 Refills, Maintenance, 02/15/21 11:45:00 AM EDT, Partial fill upon patient request if the prescription is for a schedule II opioid drug. Start Date: 02/15/21 Status: Ordered Medication Dispense Status: Completed Total Allowed Fills: 1 Fills Dispensed: 0 Vitamin D 44652 iu oral capsule 50,000 International_Units, By Mouth, Daily, Refills 0, Maintenance, 02/15/21 11:45:00 AM EDT, Partial fill upon patient request if the prescription is for a schedule II opioid drug. 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 Smoking Status Never (less than 100 in lifetime) entered on: 06/10/19 Sex Sex Representation Female (finding) Laboratory * Event Display: Non BH Lab Results Authored Date: * Event Display: Non BH Lab Results Authored Date: Patient Care team information Care Team Personnel Name: Ifrah Aleman [place] Position: S Outreach Member Role: Lifetime Consulting Physician Name: Aleida Mtz NP Position: [facility] Outreach Member Role: PCP Address: [address] [place] [id number] Telecom: Name: [place] Position: S Outreach Member Role: Lifetime Consulting Physician Care Team Related Persons Name: BALAJI RAYGOZA Insurance Providers Guarantor name: JUAN PERALTADEAU [facility] Plan Information #: 1 Payer[facility] Payer Identifier: NA Member Number: [id number] Group Number: [id number] Subscriber Identifier: NA Relationship to Subscriber: spouse Coverage Type: NA Coverage Verification Date: NA Telecom: ROSA M Address: NA
--- OUTSIDE RECORDS SUMMARY | 2025-09-04 23:59 | XMS_ITS | Continuity of Care Document ---
Author Organization [facility] Address [address] [facility] 2nd Floor [address] [place] [address]- [facility] Name Relationship Address Phone BALAJI RAYGOZA Personal Relationship Unknown Samia vailable JUAN RAYGOZA Personal Relationship Unknown Un available AJRET, JUAN Personal Relationship Unknown Un available JARET, BALAJI spouse Unknown Unavailable JARET, BALAJI Personal Relationship Unknown Samia vailable JARET, BALAJI spouse Unknown Unavailable JARET, BALAJI Personal Relationship Unknown Saima vailable JARET, BALAJI Personal Relationship Unknown Samia vailable Care Team Providers Care Heat Reader Name Role Phone Bibi DOMINGUEZ, Aleida Chris Primary Care Physician [phone] [id number] Date(s): 05/07/25 - 09/04/25 [facility] [place] [address] [place] [address]- Attending Physician: Drake Regalado MD Admitting Physician: Drake Regalado MD Referring Physician: Kimberly Spear MD Encounter Type: Pre Office Visit Allergies, Adverse Reactions, Alerts No Known Allergies [...] AM EDT, Route to Pharmacy Electronically, [facility]/pharmacy #[id number], Partial fill upon patient request [...] Maintenance, 06/10/19 9:05:51 AM EDT, Gel, [facility]/pharmacy #[id number], 1 application Topically Daily Start [...] Fills: 1 Fills Dispensed: 0 Vitamin D 69152 iu oral capsule 50,000 International_Units, By Mouth, [...] on: 06/10/19 Sex Sex Representation Female (finding) Patient Care team information Care Team Personnel Name: Ifrah Aleman [place] Position: [facility] Outreach Member Role: Lifetime Consulting Physician Name: Aleida Mtz NP Position: S Outreach Member Role: PCP Address: [address] [place] [address]- Telecom: Name: [place] Position: [facility] Outreach Member Role: Lifetime Consulting Physician Care Team Related Persons Name: BALAJI RAYGOZA Insurance Providers Guarantor name: JUAN JARET [facility] Plan Information #: 1 Payer: [facility] Payer Identifier: NA Member Number: [id number] Group Number: [id number] Subscriber Identifier: [id number] Relationship to Subscriber: spouse Coverage Type: NA Coverage Verification Date: NA Telecom: NA Address: NA
--- NOTE | 2025-09-08 07:58 | A.OFFPC_ITS ---
Vital Signs 09/08/25 08:06 Height 5 ft 5 in Weight 169 lb BMI 28.1 BP 102/66 Blood Pressure Location Lt brachial Position Sitting Respiration 12 Pulse 72 Pulse Source Pulse Oximeter Temp 97.2 F Temp Source Oral Pulse Oximetry (%) 100 Oxygen Delivery Method Room Air Intake Visit Reasons: Medication refill Intake Note: New patient to establish care and med refill. Doctor Of Chiropractic Required: No Allergies No Known Allergies Allergy (Verified 09/08/25 08:13) Medication List - Last Reviewed 09/08/25 by Beau Lin MA methylphenidate HCl ER 36 mg PO DAILY sacubitril-valsartan 24-26 mg 1 tab PO BID Tobacco use date assessed: 09/08/25 Dental Screening Dental Screen Date: 09/08/25 Did you have a dental visit in the last 12 months?: Yes Did you have a dental problem in the last 6 months where you did not have access to dental care?: No Was dental information given to patient?: Patient has dentist HPI HPI Comments History of Present Illness Details 55 y/o F with hemachromatosis, MDD/SAMSON, ADHD, HTN, CHF, LBBB, MVR, menopause, chronic constipation Fhx: Son Bruce 2019 (MVA) Grandma had lymphoma. mom has brain tumor and heart attack. 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 She is . She has 1 son She denies smoking. She drinks socially. Health Maintenance: Colon Mammo DEXA PAP Tdap 2024 Flu 09/08/25 Specialists: Heme [facility] History of Present Illness The patient is a 55-year-old female presenting to establish care. Limited MR avail to review PCP: [facility] records pending Hemochromatosis: - The patient has a history of hemochrom atosis, managed by hematology with therapeutic phlebotomy. - She was diagnosed approximately 6 year s ago but did not receive treatment for a 5-year period following her son's , during which time she felt fine. - She has since resumed phlebotomies but expresses concern that they cause her to become overly tired and anemic, questioning the required frequency. - Her sec accountant advised keeping her h emoglobin above 11. - Recent labs in July showed a ferr itin level of 12. Cardiovascular history: - The patient has a history of hypertens ion and is prescribed Entresto. - She reports a low ejection fraction of 22%, a left bundle branch block, and mitral valve regurgitation. - Her left bundle branch block was first diagnosed about 6 years ago. - She is under the care of a cardiologis t, Dr. Sal. Mental health history: - The patient has a history of major dep ressive and generalized anxiety disorder, and ADHD. - She has been on various antidepressant s for approximately 20 years and questions their efficacy. - She was previously taking fluoxetine b ut stopped about 4-5 months ago. - She is prescribed methylphenidate for ADHD, which she takes intermittently. - The patient is not currently seeing a psychiatrist or counselor. - She notes current symptoms may be rela sofia to menopause and has a history of grief following the of her son 6 years ago. Gastrointestinal Issues: - The patient reports a lifelong history of constipation and bloating. - A prior workup included a colonoscopy and endoscopy for left-sided pain which ruled out diverticulitis. - She tested negative for H. pylori and celiac disease. - A low FODMAP diet was recommended, but she did not adhere to it. 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 - Heart failure with reduced ejection fr action (22%). - Left bundle branch block. - Mitral valve regurgitation. - Hypertension. - Major depressive disorder. - Generalized anxiety disorder. - Attention-deficit/hyperactivity disord er. - History of COVID infection. - Past colonoscopy and endoscopy were ne gative for diverticulitis. - Negative tests for H. pylori and chanelle c disease. - Non-smoker. - No known drug allergies. Review of Systems - Constitutional: Reports fatigue. - Psychiatric: Reports history of depres ricardo and anxiety, as well as task paralysis associated with ADHD. Reports past grief over the of a child. - Gastrointestinal: Reports chronic cons tipation and bloating. - Endocrine: Reports menopausal symptoms . - All other systems reviewed and are neg ative. Physical Exam General: Well developed, well nourished, in no acute distress. Appears stated age. Head: Normocephalic, atraumatic. Eyes: Pupils are equal, round and reactive to light and accommodation. Conjunctivae are clear. Lungs: Clear to auscultation bilaterally. No rales, rhonchi or wheeze noted. Good air flow in all hsieh. Heart: Regular rate and rhythm. 1/6 murmurs, click, rubs or gallops are noted. Musculoskeletal: Joints are nontender, without swelling, redness, or effusions. Pulses: Peripheral pulses are equal and palpable bilaterally. Extremities: No clubbing, cyanosis nor edema is noted. Psych: Mood and affect appropriate. Results - Labs: Ejection fraction is 22%. Hemogl obin has previously been as low as 11. Most recent ferritin in July was 12. - Tests and diagnostics: Prior colonosco py and endoscopy were negative for diverticulitis. Prior testing for H. pylori and celiac disease was negative. Medical Decision Making The patient is a 55-year-old female with a complex medical history whom I am seeing today to establish care. Her primary complaints include fatigue, which she attributes to overly aggressive therapeutic phlebotomy for her hemochromatosis, leaving her anemic. Given the patient's symptomatic anemia with low hemoglobin and ferritin levels, it is reasonable to investigate other potential causes of her fatigue before attributing it solely to her phlebotomy schedule. I will order a comprehensive lab panel including vitamin D, B vitamins, and thyroid function tests to be drawn with her next hematology labs. We will reassess the necessity of her current phlebotomy frequency after these results are available. I have advised her to consider forgoing phlebotomy if her pre-draw hemoglobin is less than 14. Regarding her mental health, she has a long-standing history of depression, anxiety, and ADHD, with a poor perceived response to multiple antidepressants. Given this history and her underlying genetic condition of hemochromatosis, [employer] pharmacogenomic testing is an appropriate next step to help guide future medication selection for her psychiatric conditions, should she choose to pursue pharmacotherapy. She has been provided with a test kit to consider. For her chronic gastrointestinal symptoms, a referral to gastroenterology is warranted for further evaluation, and has been placed. Preventative care was addressed with an influenza vaccination. Follow-up is planned in four weeks to review all pending results and formulate a more definitive treatment plan. Plan 1. Hemochromatosis / Fatigue - Will check comprehensive labs includin g CBC, CMP, vitamin D, vitamin B, and thyroid panel to investigate other causes of fatigue. - Labs will be ordered to coincide with her next appointment with hematology to avoid an extra blood draw. - Advised the patient to consider holdin g therapeutic phlebotomy if her hemoglobin is less than 14. - Plan to review results and reassess ph lebotomy frequency at follow-up. 2. Mental Health Management (Mdd, Samson, A dhd) - Offered and provided a [employer]ight testi ng kit to help guide future psychotropic medication choices due to poor response history. - Will pre-prescribe methylphenidate wit angut sending to pharmacy, to be filled upon patient request via the portal, as she has a current supply. - Patient advised to continue follow-up with the [facility] group for menopausal symptoms which may be contributing to her mood. 3. Gastrointestinal Symptoms (Constipati on/Bloating) - A referral has been placed to Gastroen terology for further evaluation. 4. Health Maintenance - Administered influenza vaccine in offi ce. - Will request outside records for silverio nuity of care. - Instructed patient on using the [employer] portal for all communication. - Patient to follow up in approximately 4 weeks to review lab results and GeneSight testing if completed. Patient Instructions - You received a flu shot today. - When you go for your next blood test w ith your sec accountant, please ask them to draw the labs that I ordered for you at the same time. - You should consider not having blood d rawn if your hemoglobin level is below 14. - You have been given a GeneSight testin g kit. This is a cheek swab test you can do at home and mail in. You can read the information and decide if you would like to complete it. It can help determine which mental health medications may work best for you. - A referral has been sent to a GI (stom ach) specialist for your bloating and constipation. Their office will contact you to schedule, but please be aware there is a long wait for appointments. - Please use the online patient portal f or all communication, including questions and requests for prescription refills. Make sure to select my name when sending a message. - Please bring your medical records from your previous doctor on the thumb drive to the Medical Records department (Health Information Management) at the [facility] so they can be uploaded to your chart. - Please schedule a follow-up appointCellAegis Devices chucky in about 4 weeks to review your lab results. Consent The risks, benefits, and alternatives to GeneSight pharmacogenomic testing were discussed with the patient. It was explained that this is a one-time cheek swab test that analyzes how her genes may affect outcomes with certain psychiatric medications. Potential cost was reviewed, with a maximum dqb-[id number] expense of $300, though it is often less, and financial assistance is available. The patient was given the test kit to review and decide whether to proceed. The patient provided verbal consent to receive the influenza vaccine during the visit. Patient was informed and verbally consented to the use of an ambient scribe for clinic note documentation during this visit. Total time spent caring for the patient today was 45 minutes. This includes time spent before the visit reviewing the chart, time spent during the visit, and time spent after the visit on documentation, reviewing laboratory results, diagnostic imaging, medications, performing a medically necessary evaluation, counseling on diagnoses, care coordination, ordering appropriate tests, ordering appropriate medications, review of tests performed by other providers, reporting test results with the patient, communication with other healthcare providers. PFSH Medical History (Updated 09/08/25 @ 08:36 by [facility]) ADHD Depression Hereditary hemochromatosis Social History (Updated 09/08/25 @ 07:59 by Beau Lin MA) Household Members: Spouse, Family and Children Both parents involved: No Caregiver staying overnight: No Housing: House Are you a primary pet care associate to a significant other at home: Yes Do you presently have visiting nurse or other home services: No 75 years or older and lives alone: No Alcohol intake: current Alcohol intake frequency: a few times a month Patient Tobacco Use Status: Never used Tobacco e-Cigarette/Vaping Use: Never Used Second Hand Smoke Exposure: No service: No Current occupational status: employed 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 1. Little interest or pleasure in doing things: more than half the days 2. Feeling down, depressed, or hopeless: several days 3. Trouble falling or staying asleep, or sleeping too much: several days 4. Feeling tired or having little energy: nearly every day 5. Poor appetite or overeating: several days 6. Feeling bad about yourself - or that you are a failure or have let yourself or your family down: not at all 7. Trouble concentrating on things, such as reading the newspaper or watching television: nearly every day 8. Moving or speaking so slowly that other people could have noticed. Or the opposite - being so fidgety or restless that you have been moving around a lot more than usual: several days 9. Thoughts that you would be better off or of hurting yourself in some way: not at all Total score: 12 Depression Screening Interpretation: Positive Depression Screening Follow-up: Existing condition and In treatment Depression Screening Done: Yes 56062 - PHQ-9 Billing: Yes Source: Developed by Drs. Mikhail Blunt, Tami Briggs, Waqar Castanon and colleagues, with an educational moe from [employer]. Thrive Questionnaire Date Thrive assessed: 09/08/25 I am a: Patient What is your living situation today?: I have a steady place to live Within the past 12 months, did the food you bought not last and you didn't have the money to get more?: Never true Within the past 12 months, did you worry whether your food would run out before you got money to buy more?: Never true Do you have trouble paying for medicines?: No Do you have trouble getting transportation to medical appointments?: No Do you have trouble paying your heating and electricity bill?: No Do you have trouble taking care of your child, family member or friend?: No Do you have trouble with day-to-day activities such as bathing, preparing meals, shopping, managing finances, etc.?: No Are you currently unemployed and looking for a job?: No Are you interested in more education?: No Please select the resources that you would like help with: None Currently or been in a relationship where the following occur: No concerns reported THRIVE Score: 0 AUDIT C Alcohol Use Questionnaire (AUDIT-C) 1. How often do you have a drink containing alcohol?: 2-4 times a month 2. How many drinks containing alcohol do you have on a typical day when you are drinking?: 1 or 2 3. How often do you have six or more drinks on one occasion?: Never Total Score: 2 Score Reviewed/Action Taken: Yes SAMSON-7 AMB Questionnaire SAMSON-7 Date SAMSON - 7 assessed: 09/08/25 Feeling nervous, anxious, or on edge: 1 = Several days Not being able to stop or control worryin = Several days Worrying too much about different things: 1 = Several days Trouble relaxin = Several days Being so restless that it is hard to sit still: 0 = Not at all Becoming easily annoyed or irritable: 1 = Several days Feeling afraid as if something awful might happen: 0 = Not at all Total SAMSON-7 score (0-4 normal; 5-9 mild; 10-14 moderate; 15-21 severe): 5 Source: Developed by Drs. Mikhail Blunt, Tami Briggs, Waqar Castanon and colleagues, with an educational moe from [employer]. SAMSON-7 Assessment Billing SAMSON-7 Assessment Tool: SAMSON-7 Assessment 53772 Physical exam (Primary Care) Vital Signs: Last Vital Signs Temp 97.2 F 09/08/25 08:06 Pulse 72 09/08/25 08:06 Resp 12 09/08/25 08:06 BP 102/66 09/08/25 08:06 Pulse Ox 100 09/08/25 08:06 Oxygen Delivery Method Room Air 09/08/25 08:06 BMI result Body Mass Index 28.1 Tobacco/Smoking Status: Tobacco use Status Tobacco use date assessed 09/08/25 09/08/25 08:06 Patient Tobacco Use Status Never used Tobacco 09/08/25 08:06 e-Cigarette/Vaping Use Never Used 09/08/25 08:06 PHQ-9: PHQ-9 Score PHQ-9: Total score 12 09/08/25 08:06 Depression Screening Interpretation: Positive Depression Screening Follow-up: Existing condition and In treatment Thrive Assessment: Date of Thrive Assessment Date Thrive assessed 09/08/25 09/08/25 08:06 Currently or been in a relationship where the following occur: No concerns reported Coding Level of Care Code New Pt Level 4 (36264) Complex EM visit Add On G2211 Diagnoses Encounter to establish care Z76.89 Hereditary hemochromatosis E83.110 Hemochromatosis type: hereditary Mild episode of recurrent major depressive disorder F33.0 Major depression episode severity: mild SAMSON (generalized anxiety disorder) F41.1 Primary hypertension I10 Hypertension type: primary hypertension LBBB (left bundle branch block) I44.7 Mitral valve regurgitation I34.0 CHF (congestive heart failure) I50.9 Fatigue R53.83 ADHD F90.9 Chronic constipation K59.09 Influenza vaccination administered at current visit Z23 Additional Codes SAMSON-7 Assessment Billing - SAMSON-7 Assessment Tool: SAMSON-7 Assessment 33915 ([id number]) PHQ-9 - 12839 - PHQ-9 Billing: Yes ([id number]) Assessment & Plan Assessment & Plan (1) Encounter to establish care: Code(s): Z76.89 - Persons encountering health services in other specified circumstances (2) Hemochromatosis: Code(s): E83.119 - Hemochromatosis, unspecified Category: Medical Qualifiers: Hemochromatosis type: hereditary Qualified Code(s): E83.110 - Hereditary hemochromatosis (3) MDD (major depressive disorder), recurrent episode: Code(s): F33.9 - Major depressive disorder, recurrent, unspecified Category: Medical Qualifiers: Major depression episode severity: mild Qualified Code(s): F33.0 - Major depressive disorder, recurrent, mild (4) SAMSON (generalized anxiety disorder): Code(s): F41.1 - Generalized anxiety disorder Category: Medical (5) HTN (hypertension): Code(s): I10 - Essential (primary) hypertension Category: Medical Qualifiers: Hypertension type: primary hypertension Qualified Code(s): I10 - Essential (primary) hypertension (6) LBBB (left bundle branch block): Code(s): I44.7 - Left bundle-branch block, unspecified Category: Medical (7) Mitral valve regurgitation: Code(s): I34.0 - Nonrheumatic mitral (valve) insufficiency Category: Medical (8) CHF (congestive heart failure): Code(s): I50.9 - Heart failure, unspecified Category: Medical (9) Fatigue: Code(s): R53.83 - Other fatigue Category: Medical (10) ADHD: Code(s): F90.9 - Attention-deficit hyperactivity disorder, unspecified type Category: Medical (11) Chronic constipation: Code(s): K59.09 - Other constipation Category: Medical (12) Influenza vaccination administered at current visit: Code(s): Z23 - Encounter for immunization Category: Medical Plan . Orders: Orders Comprehensive Met. Panel Today F33.0 - Major depressive disorder, recurrent, mild, F41.1 - Generalized anxiety disorder, I10 - Essential (primary) hypertension Microalbumin, Random (w Creat) Today F33.0 - Major depressive disorder, recurrent, mild, F41.1 - Generalized anxiety disorder, I10 - Essential (primary) hypertension Vitamin D 25-OH Total Today F33.0 - Major depressive disorder, recurrent, mild, F41.1 - Generalized anxiety disorder, I10 - Essential (primary) hypertension Hemoglobin A1c Today F33.0 - Major depressive disorder, recurrent, mild, F41.1 - Generalized anxiety disorder, I10 - Essential (primary) hypertension Lipid Panel Today F33.0 - Major depressive disorder, recurrent, mild, F41.1 - Generalized anxiety disorder, I10 - Essential (primary) hypertension TSH reflex Free T4 Today F33.0 - Major depressive disorder, recurrent, mild, F41.1 - Generalized anxiety disorder, I10 - Essential (primary) hypertension Vitamin B12 and Folate Today F33.0 - Major depressive disorder, recurrent, mild, F41.1 - Generalized anxiety disorder, I10 - Essential (primary) hypertension Referrals Gastroenterology Referral K59.09 - Other constipation Medications: New methylphenidate HCl ER 36 mg PO DAILY 90 tabs 0RF Patient Instructions: Walk-In Care (Urgent Care): We Make it Easy Walk-in for urgent medical issues such as: ? Seasonal Allergies ? Insect Bites ? Cough ? Diarrhea ? Acute Asthma Attacks ? Back, Knee or Joint Pain ? Ear Infection ? Fever without a Rash ? Headaches ? Nausea ? Enders Eye, Rash or Skin Irritation ? Sore Throat ? Sports Physicals ? Vomiting Most insurances are accepted. Patients do not need to be part of the [facility] to seek care at the walk-in clinic. Locations [address], [place] Open Sunday through Sunday 8am-5pm *Hours may vary due to staffing availability. To confirm Walk-In Care hours please call. [facility] [address], [place] [address] ? [phone] [facility] in [place] provides services to ages 18 and over. Open Sunday-Sunday: 7 a.m. to 5 p.m. and Sunday: 9 a.m. to 3 p.m.* *Hours may vary due to staffing availability. To confirm Walk-In Care hours in [place], please call [phone]. [address] [place] [address] ? [phone] [facility] in [place] provides services to ages 12 and over. Open Sunday-Sunday: 8 a.m. to 5 p.m. Hours may vary due to staffing availability. To confirm Walk-In Care hours in [place], please call [phone]. LABORATORY SERVICES: [facility] Lab ? Primary Location [address] [place] [address] Sunday through Sunday 6:00 AM ? 5:00 PM Sunday 7:00 AM ? 11:00 AM* [phone] The [facility] Lab is centrally located near the front entrance of the [facility] for easy outpatient access. Convenient parking is provided for outpatients. *Hours may vary due to staffing availability. To confirm Laboratory hours for any location, please call [phone]. Offsite Location For your convenience, we offer offsite laboratory draw stations at the following locations: [address] [place] [address] ? [address], [address] Sunday through Sunday 7:30 AM ? 1:00 PM* [phone] *Hours may vary due to staffing availability. To confirm Laboratory hours for any location, please call [phone]. [place] ? [address] Sunday through Sunday 6:00 AM ? 3:30 PM* Sunday 6:30 AM ? 3 PM* [phone] *Hours may vary due to staffing availability. To confirm Laboratory hours for any location, please call [phone] [place] [address] Sunday through Sunday 7:30 AM ? 4:00 PM* [phone] *Hours may vary due to staffing availability. To confirm Laboratory hours for any location, please call [phone] [place] [address] Sunday through 9:00 AM ? 4:00 PM* *Hours may vary due to staffing availability. To confirm Laboratory hours for any location, please call [phone]. Appointments are not necessary. Walk-ins are welcome. Like all the departments throughout the [facility], our Lab undergoes frequent reviews to ensure the quality and accuracy of test results, and our staff takes special pride in its status as a nationally accredited facility. Patient Portal: [facility] ONE PATIENT. ONE RECORD. BETTER CARE. [facility] has a fully integrated, cutting- edge mobile electronic health information system that has revolutionized the way we care for our patients and manage our organization. This system improves communication and coordination enabling us to provide safe, higher-quality care, and an overall positive experience for staff and patients. Our first priority, as always, is to deliver the highest quality care possible. The system is running in the background supporting that priority. This portal is for all [facility] and [facility] services and practices. If you are experiencing any technical difficulties with enrolling or logging into the Patient Portal please complete the [facility] Patient Portal Technical Support Form. [facility] now offers a new secure on-line interactive tool for patients to review their health information ? ?Patient Portal. This interactive web portal will enable patients and their families to take an active role in their care by providing easy, secure access to their health information via the internet. The Patient Portal provides patients with instant access to their health information, including laboratory results, medications, allergies, demographic information, visit history, and more. In addition to managing their own care, parents and health care proxies with authorized consent will appreciate the ability to access the records of those individuals for whom they provide care. Please note: if you wish to gain access (Proxy) to another patient?s portal, you will be required to come to the Medical Records Department in person at [facility]. Both the patient giving proxy access and the proxy will need to provide photo identification and complete the appropriate authorization. The Patient Portal also allows track their appointments online. The [facility] Patient Portal also saves patients time by allowing them to submit updates to their demographic and contact information prior to their visits. Portal email notifications will also alert patients to any new activity on their portal, such as test results and new appointments. In order to initially enroll in the [facility] Patient Portal, you will need to enter some required information including the following: * your [facility] Medical Record number * your personal home email address * name * date of Please note: In order to enroll in the [facility] Patient Portal, we need to have your email address on file in your electronic medical record. ?The email address needs to be specific for one person (yourself) in order for your Portal enrollment to be successful. ?You can update your email address in person with our Registration staff when you are registering for a hospital visit. ?Otherwise, you will need to come to the Health Information Management (Medical Records) Department at [facility]. ?We are open from Sunday ? Sunday from 7:30 a.m. ? 4:30 p.m. ?You will be required to present a photo id. Once you have successfully enrolled in the Patient Portal, you will receive a one-time user id and password for the Portal, sent to your email address. ?This will allow you to log into the Patient Portal within 99 hrs and reset your own logon id and password, and define personal security questions. ?Once your perman ent login and password have been set, you can log into the [facility] Patient Portal at any time via the blue button above or from the Portal Logon button on any page of the [facility] website. [facility] and [facility] encourage all of our patients to enroll in Patient Portal as it presents a valuable opportunity for patients and their families to actively participate in their care and stay healthy Welcome to [facility]. ?We look forward to working with you.
--- OUTSIDE RECORDS SUMMARY | 2025-09-08 08:01 | XMS_ITS | Encounter Summary ---
Author Organization [employer] Address [address] [place] [address] Care Team Providers Care Latin American Studies Professor Name Role Phone Kimberly Spear MD Primary Care Provider [phone] Encounter Details Date Type Department Care Team (Late st Contact Info) Description 01/05/2023 Orders Only [facility] [address] [place], [place] [id number] Kimberly Spear MD [address] [place] [address] Attention deficit hyperactivity disorder (ADHD), predominantly inattentive [...] disorder documented in this encounter Care Teams Latin American Studies Professor Relationship Specialty Start Date End Date Kimberly Spear MD [address] [place] [phone] PCP - General Family Medicine 09/21/20 documented as of this encounter
--- OUTSIDE RECORDS SUMMARY | 2025-09-08 08:01 | XMS_ITS | Encounter Summary ---
Author Organization [employer] Address [address] [place] [address] Care Team Providers Care Improvement Director Name Role Phone Kimberly Spear MD Primary Care Provider [phone] Encounter Details Date Type Department Care Team (Late st Contact Info) Description 07/02/2025 Orders Only [facility]EDS [address] [place] [address] Provider, MD Eliana Social History Tobacco Use [...] documented as of this encounter Care Teams Improvement Director Relationship Specialty Start Date End Date Kimberly Spear MD [address] [place] [phone] PCP - General Family Medicine 09/21/20 documented as of this encounter
--- OUTSIDE RECORDS SUMMARY | 2025-09-08 08:01 | XMS_ITS | Encounter Summary ---
Author Organization [employer] Address [address] [place] [address] Care Team Providers Care Geothermal Electrical Engineer Name Role Phone Kimberly Spear MD Primary Care Provider [phone] Encounter Details Date Type Department Care Team (Late st Contact Info) Description 06/09/2025 Orders Only [facility]S [address] [place] [address] Provider, MD Eliana Social History Tobacco Use [...] documented as of this encounter Care Teams Geothermal Electrical Engineer Relationship Specialty Start Date End Date Kimberly Spear MD [address] [place] [phone] PCP - General Family Medicine 09/21/20 documented as of this encounter
--- OUTSIDE RECORDS SUMMARY | 2025-09-08 08:01 | XMS_ITS | Encounter Summary ---
Author Organization [employer] Address [address] 7[address] [place] [address] Care Team Providers Care Java Lead Developer Name Role Phone Kimberly Spear MD Primary Care Provider [phone] Encounter Details Date Type Department Care Team (Late st Contact Info) Description 02/12/2025 Orders Only [facility]EDS [address] [place] [address] [place] Social History Tobacco Use Types [...] EST) Pap Smear 1. NILM 1. NILM [facility] HPV Not Detected Undetected, Indeterminat e, Quantitative , Not Detected [facility] us Historical Provider [facility] MAINTENA[facility]CE Edited Result - Final [facility] [address] [place] [address] documented in this encounter Visit Diagnoses Not on filedocumented in this encounter Additional Health Concerns Assessment Noted Time PHQ-9 Depression Total Score: 4 01/01/20 24 11:07 AM EST documented as of this encounter Care Teams Java Lead Developer Relationship Specialty Start Date End Date Kimberly Spear MD [address] [place] [phone] PCP - General Family Medicine 09/21/20 documented as of this encounter
--- OUTSIDE RECORDS SUMMARY | 2025-09-08 08:01 | XMS_ITS | Clinical Summary ---
Author Organization [employer] Address [address] [facility] [facility] [address] [facility] 7t [place] [address] Care Team Providers Care Furniture Assembly Supervisor Name Role Phone Kimberly Spear MD Primary Care Provider [phone] Allergies No known active allergies Medications * This document contains information received from the source organization and may not represent a complete record from that organization. methylphenidate (Ritalin) 20 MG tablet Take 1 tablet (20 mg) by mouth Once per day. 30 tablet Active Methylphenidate HCl (methylphenidate ER) 36 MG [...] Department Care Team Description 07/06/2025 Orders Only [facility] [address] [place] [address] Kimberly Spear MD Attention deficit hyperactivity disorder (ADHD), predominantly inattentive type 07/02/2025 Orders Only [facility] [address] [place] [address] Eliana Andrews MD 06/09/2025 Orders Only [facility] [address] [place] [address] Eliana Andrews MD from Last 3 Months Immunizations Immunization Administration [...] Other Historical Provider HEALTH MAINTENANCE Final Result * ECG 12 lead (06/09/2025 12:14 PM EDT) Historical Provider ECG ORDERABLES Final Res ult * Hepatitis C Antibody with Reflex to HCV, RNA, Quantitative, Real-Time PCR (02/05/2024 11:01 AM EDT) Hepatitis C Antibody Nonreactive Nonreactive [facility] Comment:Antibodies to HCV no t detected; does not exclude early acuteHCV infection. Blood Venous blood specimen / Unknown 02/05/2024 11:01 AM EDT 02/05/2024 2:12 PM EDT Kimberly Spear MD LAB BLOOD ORDERABLES Final Resul t [facility] [address] [place] [phone] * PAP/HPV (12/21/2021 12:00 AM EST) Pap Smear 1. NILM 1. NILM [facility] HPV Not Detected Undetected, Indeterminat e, Quantitative , Not Detected [facility] us Historical Provider HEALTH MAINTENANCE Edited Result - Final [facility] [address] [place] [address] from Last 3 Months or Most Recently Relevant to Health Maintenance Insurance [facility] Care Teams Furniture Assembly Supervisor Relationship Specialty Start Date End Date Kimberly Spear MD [address] [place] [phone] PCP - General Family Medicine 09/21/20
--- OUTSIDE RECORDS SUMMARY | 2025-09-08 08:01 | XMS_ITS | Clinical Summary ---
Author Organization [facility] [employer] [facility] Address [address] [place] [address] Phone Care Team Providers Care Greenhouse Staff Name Role Phone Kimberly Spear MD Primary Care Provider [phone] Allergies No known active allergies Medications methylphenidate [...] (two) times a day. 180 tablet 1 07/10/2025 Active Active Problems Problem Noted Date Diagnosed Date LBBB (left bundle branch block) 06/08/2025 Assessment & Plan (06/09/2025 1:12 PM EDT): Orders: Ambulatory referral to Cardiology ECG [address] Angio Heart w 3D Imaging/Function; Future Encounters Date Type Department Care Team Description 07/10/2025 Telephone [facility] - [address] [place] [address] Christiano Christianson MD 06/18/2025 Telephone [facility] [address] [facility] [address] [place] [phone] Christiano Christianson MD 06/09/2025 9:20 AM EDT Office Visit [facility] - [facility] [address] [place] [phone] Christiano Christianson MD Other cardiomyopathy (CMS/HCC V24, CMS/HCC V28) (Primary Dx); LBBB (left bundle branch block); Nonrheumatic mitral (valve) insufficiency from Last 3 Months Social History Tobacco [...] 06/09/2025 9:27 AM EDT Plan of Treatment Upcoming Encounters Date Type Department Care Team (Late st Contact Info) Description 09/09/2025 7:40 AM EDT Office Visit [facility] [address] [facility] [address] [place] [address] Loreto Donovan NP [address] [place] [address] [place] [phone] Health Maintenance Due Date Last Done Comments Breast Cancer Screening 1972 Colorectal Cancer Screening: Colonoscopy 1972 Hepatitis B Vaccines (1 of 3 - 19+ 3-dose series) 1991 Cervical Cancer Screening: P ap Smear 1993 Pneumococcal Vaccine: 50+ Years (1 of 1 - PCV) 2022 Zoster Vaccines (1 of 2) 2022 HIV Screening 10/15/2022 Social Influencers of Health Screening 10/15/2022 Depression Screening 11/12/2024 COVID-19 Vaccine (3 - 2024-2 6 season) 2025 04/05/2021, 03/15/2021 Influenza Vaccine (#1) 2025 DTaP,Tdap,and Td Vaccines (2 - Td or Tdap) 02/04/2034 02/05/2024 RSV Immunization Adult Patients (1 - 1-dose 75+ series) 2047 Hepatitis [...] Procedure Name Priority Date/Time Associated Diagnosis Comments BASIC METABOLIC PANEL Routine 07/24/2025 11:32 AM EDT LBBB (left bundle branch block) Other cardiomyopathy (CMS/HCC V24, CMS/HCC V28) ECG 12-LEAD Routine 06/09/2025 9:37 AM EDT LBBB (left bundle branch block) from Last 3 Months Results * Basic metabolic panel (07/24/2025 11:32 AM EDT) Sodium 138 133 - 145 mmol/L LAB CHEMISTRY METHOD 07/24/2025 2:[address] [facility] Potassium 4.2 3.5 - 5.5 mmol/L LAB CHEMISTRY METHOD 07/24/2025 2:[address] [facility] Chloride 106 96 - 110 mmol/L LAB CHEMISTRY METHOD 07/24/2025 2:[address] [facility] CO2 25 21 - 32 mmol/L LAB CHEMISTRY METHOD 07/24/2025 2:[address] [facility] Anion Gap 7 3 - 11 LAB CHEMISTRY METHOD 07/24/2025 2:[address] [facility] Glucose 89 70 - 100 mg/dL LAB CHEMISTRY METHOD 07/24/2025 2:[address] [facility] BUN 13 5 - 25 mg/dL LAB CHEMISTRY METHOD 07/24/2025 2:[address] [facility] Creatinine 0.88 0.50 - 1.10 mg/dL LAB CHEMISTRY METHOD 07/24/2025 2:[address] [facility] eGFR 79 >=60 mL/min/1. 73m2 LAB CHEMISTRY METHOD 07/24/2025 2:[address] [facility] Comment:Calculation based on the Chronic Kidney Disease Epidemiology Collaboration (CKD-EPI) equation refit without adjustment for race. BUN/Creatinine Ratio 14.8 LAB CHEMISTRY METHOD 07/24/2025 2:[address] [facility] Calcium 9.5 8.5 - 10.5 mg/dL LAB CHEMISTRY METHOD 07/24/2025 2:[address] [facility] Blood Venous blood specimen / Unknown Venipuncture / Unknown 07/24/2025 11:32 AM EDT 07/24/2025 11:32 AM EDT us Christiano Christianson MD LAB BLOOD ORDERABLES Estephania l Result [facility] [place] ([facility] [address] [place] [address], * ECG 12 lead (06/09/2025 9:37 AM EDT) Ventricular Rate ECG 77 BPM GEMUSE Atrial Rate 77 BPM GEMUSE P-R Interval 152 ms GEMUSE QRS Duration 128 ms GEMUSE Q-T Interval 412 ms GEMUSE QTc 466 ms GEMUSE P Wave [place] 67 degrees GEMUSE R [place] 8 degrees GEMUSE T [place] -101 degrees GEMUSE ECG Interpretation Normal sinus rhythm Left bundle branch block Abnormal ECG No previous ECGs available Confirmed by MD Sammy, Christiano ([id number]) on 06/09/2025 9:47:31 AM GEMUSE 06/09/2025 9:37 AM EDT 06/09/2025 9:47 AM EDT Christiano Christianson MD ECG ORDERABLES Final Res ult GEMUSE from Last [address] [facility] Care Teams Greenhouse Staff Relationship Specialty Start Date End Date Kimberly Spear MD [address] [place] [phone] PCP - General Family Medicine 05/25/25
[2025-09-08 08:06] VITALS: BP 102/66; PULSE 72; RESP 12; TEMP 36.2; O2SAT 100; BMI 28.1
== END 2025-09-08 08:52 | disposition home or self-care (01) ==
LOC: HO.HMCFM 07:58
PROVIDERS: PCP Nurse Practitioner Family; Visit Provider Nurse Practitioner Family
DX: Z76.89 Persons encountering health services in other specified circumstances (principal); E83.110 Hereditary hemochromatosis; F33.0 Major depressive disorder, recurrent, mild; F41.1 Generalized anxiety disorder; I10 Essential (primary) hypertension; I44.7 Left bundle-branch block, unspecified; I34.0 Nonrheumatic mitral (valve) insufficiency; I50.9 Heart failure, unspecified; R53.83 Other fatigue; F90.9 Attention-deficit hyperactivity disorder, unspecified type; K59.09 Other constipation; Z23 Encounter for immunization

== ENCOUNTER → 2025-09-08 07:56 | Outpatient (BNVA) | payer BC, SELFPAY | PROVIDERS: PCP Nurse Practitioner Family; Visit Provider Nurse Practitioner Family | DX: F41.1 Generalized anxiety disorder (principal); E83.119 Hemochromatosis, unspecified; F90.9 Attention-deficit hyperactivity disorder, unspecified type; K59.00 Constipation, unspecified; E83.110 Hereditary hemochromatosis; F33.0 Major depressive disorder, recurrent, mild; I44.7 Left bundle-branch block, unspecified; I34.0 Nonrheumatic mitral (valve) insufficiency; I11.0 Hypertensive heart disease with heart failure; I50.9 Heart failure, unspecified; K59.09 Other constipation; Z23 Encounter for immunization; Z76.89 Persons encountering health services in other specified circumstances | CPT/HCPCS: 90471; 90656; 96127 ==

== ENCOUNTER 2025-09-14 11:15 | Outpatient (REF) | payer BC, SELFPAY ==
--- OUTSIDE RECORDS SUMMARY | 2025-09-09 06:40 | XMS_ITS | Encounter Summary ---
Author Organization [facility] Address [address] [place] [address] Care Team Providers Care Precision Inspector Name Role Phone FarhadAleida Richardson ZAK Primary Care Provider [phone] Reason for Referral * Imaging (Routine) - Authorized Specialty Diagnoses / Procedures Referred By Ramon locke Referred To Contact Cardiology Diagnoses Other cardiomyopathy (CMS/HCC V24, CMS/HCC V28) Procedures Transthoracic echocardiogram (TTE) complete with PRN contrast, bubble, strain, and 3D order panel WI TTE W 2D IMAGE COMPLETE W DOPPLER ECHO & COLOR FLOW DOPPLER ECHO WI RED 2D COMPLETE W/CONTRAST OR W & WO CONTRAST WITH DOPPLER Loreto Donovan NP [address] [place] [address] Dr Torres [address] [place] [phone] Phone: tel: fax: [facility] Referral ID Status Reason Start Date Expiration Date V isits Requested Visits Authorized [id number] Authorized 09/09/2025 09/09/2026 1 1 Reason for Visit * Reason Comments Follow-up * Consultation (Urgent) - Authorized Specialty Diagnoses / Procedures Referred By Ramon locke Referred To Contact Cardiology Diagnoses LBBB (left bundle branch block) Kimberly Spear MD [address] [place] [address] Phone: tel: fax: [facility] [address] [place] [address] Phone: tel: fax: Referral ID Status Reason Start Date Expiration Date Visits Requested Visits Authorized [id number] Authorized Specialty Services Required 06/09/2025 06/09/2026 6 6 Encounter Details Date Type Department Care Team (Latest Contact Info) Description 09/09/2025 7:40 AM EDT Office Visit [facility] - [address] [place] [phone] Loreto Donovan NP [address] [place] [address] Dr [address] [place] [address] Other cardiomyopathy (CMS/HCC V24, CMS/HCC V28) (Primary Dx); Palpitations; LBBB (left bundle branch block) Social History Tobacco Use Types Packs/Day Years Used Date Smoking Tobacco: Never Alcohol Use Standard Drinks/Week Comments Yes 0 (1 standard drink = 0.6 oz pur e alcohol) 1-2 weekly Comments Unknown Sex and Gender Information Value Date Recorded Sex Assigned at Not on file Legal Sex Female 8:08 AM EST Gender Identity Not on file Sexual Orientation Not on file documented as of this encounter Last Filed Vital Signs Vital Sign Reading Time Taken Comments Blood Pressure 150/88 09/09/2025 7:36 AM EDT Pulse 77 09/09/2025 7:36 AM EDT Temperature - - Respiratory Rate - - Oxygen Saturation 97% 09/09/2025 7:36 AM EDT Inhaled Oxygen Concentration - - Weight 77.1 kg (170 lb) 09/09/2025 7:36 AM EDT Height 165.1 cm (5' 5 ) 09/09/2025 7:36 AM EDT Body Mass Index 28.29 09/09/2025 7:36 AM EDT documented in this encounter Progress Notes * Loreto Donovan NP - 09/09/2025 7:40 AM EDTAssociated Problem(s): Cardiomyopathy (CMS/HCC V24, CMS/HCC V28) Patient is completely euvolemic upon exam. She denies any symptoms of shortness of breath. Her losartan has been transition to low-dose Entresto and she is tolerating this well. We will update an echocardiogram to further evaluate for recovery in her LVEF as well as for resolution of small pericardial effusion that was noted on coronary CTA. She denies any chest discomfort or breathlessness. Encouraged to continue to follow a low-sodium diet and perform daily weights. Patient will reach out to our office with a weight gain of 2 pounds in 1 day or 5 pounds in 5 days accompanied by worsening peripheral edema, shortness of breath or abdominal distention. Orders: Lipid panel with reflex to direct LDL; Future Transthoracic echocardiogram (TTE) complete with PRN contrast, bubble, strain, and 3D order panel; Future perflutren lipid microsphere (DEFINITY) 1.3 mL in sodium chloride 0.9% 8.7 mL injection * Loreto Donovan NP - 09/09/2025 7:40 AM EDTAssociated Problem(s): Palpitations Patient denies any recurrence of palpitations. She is now only taking her Ritalin as needed. Triggers for palpitations including increased caffeine or alcohol intake, dehydration, stress, infection and untreated sleep apnea. * Loreto Donovan NP - 09/09/2025 7:40 AM EDTAssociated Problem(s): LBBB (left bundle branch block) We will update her echocardiogram. Ischemic evaluation negative for any obstructive CAD. We did discuss the potential for ENVIRONMENTAL COMMUNICATIONS SPECIALIST therapy in the future should her LVEF continues to decline despite titration and GDMT for HFrEF. The patient understands she is only on a single medication and there are many other avenues to explore prior to eating with our EP service for ENVIRONMENTAL COMMUNICATIONS SPECIALIST therapy discussion. Again sheis completely asymptomatic. * Loreto Donovan NP - 09/09/2025 7:40 AM EDT Images from the original note were not included. [facility] PRIMARY HAM CURER: Christiano Christianson MD PCP: ZAK Moon HPI: Sharlene Patel is a 55 y.o. old female with past medical history of left bundle branch block, cardiomyopathy, palpitations. Echocardiogram performed in May 2024 at [facility] in the setting of left bundle branch block. Normal LV size with mild septal hypertrophy. Septal dyssynergy consistent with left bundlebranch block. EF 40%. Inferior wall was noted to be hypokinetic. Normal RV size and function. No hemodynamically significant valvular disease. She underwent cardiac MRI in December 2024. No specific finding for hemochromatosis. Mild intramural delayed enhancement signal in the basal to mid inferior lateral wall, differential including fibrosis, and ischemic cardiomyopathy. She was in by Dr. Christianson in May 2025 and did report feeling fatigued. Currently in light of her cardiomyopathy and reduced EF a cardiac MRI was ordered. Losartan was transition to Entresto. She underwent coronary CTA August 2025. This was negative for any evidence of atherosclerotic coronary artery disease. Small pericardial effusion adjacent to the anterior right ventricle. She presents today for cardiology follow-up. Denies chest pain, pressure, shortness of breath, dyspnea exertion, dizziness, lightheadedness, presyncope or syncope. The patient denies palpitations, peripheral edema, abdominal distention, PND or orthopnea. There have been no falls or cardiac related h ospitalizations since the last office visit. ACTIVE MEDICATIONS: Medications Taking[1] PAST MEDICAL HISTORY: Problem List[2] ALLERGIES: Allergies[3] SOCIAL HISTORY: Social History Tobacco Use Smoking status: Never Smokeless tobacco: Not on file Substance Use Topics Alcohol use: Yes Comment: 1-2 weekly PHYSICAL EXAM: Vitals: 09/09/25 0736 BP: (!) 150/88 Pulse: 77 SpO2: 97% Weight: 77.1 kg (170 lb) Height: 1.651 m (65 ) Physical Exam Vitals reviewed. Constitutional: General: She is not in acute distress. HENT: Head: Normocephalic. Eyes: Pupils: Pupils are equal, round, and reactive to light. Cardiovascular: Rate and Rhythm: Normal rate and regular rhythm. Pulses: Normal pulses. Heart sounds: No murmur heard. No friction rub. No gallop. Pulmonary: Effort: Pulmonary effort is normal. Breath sounds: No wheezing, rhonchi or rales. Abdominal: General: Abdomen is flat. There is no distension. Palpations: Abdomen is soft. Musculoskeletal: General: No swelling. Cervical back: Normal range of motion. Right lower leg: No edema. Left lower leg: No edema. Skin: General: Skin is warm and dry. Neurological: Mental Status: She is alert and oriented to person, place, and time. Mental status is at baseline. Psychiatric: Mood and Affect: Mood normal. Behavior: Behavior normal. EKG: Encounter Date: 06/09/25 ECG 12 lead Result Value Ventricular Rate ECG 77 Atrial Rate 77 P-R Interval 152 QRS Duration 128 Q-T Interval 412 QTc 466 P Wave [place] 67 R [place] 8 T [place] -101 ECG Interpretation Normal sinus rhythm Left bundle branch block Abnormal ECG No previous ECGs available Confirmed by MD Christianson Christopher ([id number]) on 06/09/2025 9:47:31 AM *Note: Due to a large number of results and/or encounters for the requested time period, some results have not been displayed. A complete set of results can be found in Results Review. TESTING: ASSESSMENT/PLAN: Assessment & Plan Other cardiomyopathy (CMS/HCC V24, CMS/HCC V28) Patient is completely euvolemic upon exam. She denies any symptoms of shortness of breath. Her losartan has been transition to low-dose Entresto and she is tolerating this well. We will update an echocardiogram to further evaluate for recovery in her LVEF as well as for resolution of small pericardial effusion that was noted on coronary CTA. She denies any chest discomfort or breathlessness. Encouraged to continue to follow a low-sodium diet and perform daily weights. Patient will reach out to our office with a weight gain of 2 pounds in 1 day or 5 pounds in 5 days accompanied by worsening peripheral edema, shortness of breath or abdominal distention. Orders: Lipid panel with reflex to direct LDL; Future Transthoracic echocardiogram (TTE) complete with PRN contrast, bubble, strain, and 3D order panel; Future perflutren lipid microsphere (DEFINITY) 1.3 mL in sodium chloride 0.9% 8.7 mL injection Palpitations Patient denies any recurrence of palpitations. She is now only taking her Ritalin as needed. Triggers for palpitations including increased caffeine or alcohol intake, dehydration, stress, infection and untreated sleep apnea. LBBB (left bundle branch block) We will update her echocardiogram. Ischemic evaluation negative for any obstructive CAD. We did discuss the potential for ENVIRONMENTAL COMMUNICATIONS SPECIALIST therapy in the future should her LVEF continues to decline despite titration and GDMT for HFrEF. The patient understands she is only on a single medication and there are many other avenues to explore prior to eating with our EP service for ENVIRONMENTAL COMMUNICATIONS SPECIALIST therapy discussion. Again sheis completely asymptomatic. Thank you for allowing us to participate in the care of this patient. The patient will follow up in4 months after echo, sooner PRN. As per AHA guidelines and previously established plan of care by Dr. Christiano Christianson MD, we discussed the following today: 1. Other cardiomyopathy (CMS/HCC V24, CMS/HCC V28) 2. Palpitations 3. LBBB (left bundle branch block) T [facility] [1] Outpatient Medications Marked as Taking for the 09/09/25 encounter (Office Visit) with Loreto Craig NP Medication Sig Dispense Refill docosahexaenoic acid/epa (FISH OIL ORAL) Take by mouth 1 (one) time each day. fexofenadine (NYDIA) 60 mg tablet Take 1 tablet (60 mg total) by mouth 1 (one) time each day. Lactobacillus no.46/B.animalis (PROBIOTIC-10 ORAL) Take by mouth 1 (one) time each day. sacubitriL-valsartan (ENTRESTO) 24-26 mg per tablet Take 1 tablet by mouth 2 (two) times a day. 180tablet 1 [2] Patient Active Problem List Diagnosis LBBB (left bundle branch block) Cardiomyopathy (CMS/HCC V24, CMS/HCC V28) Palpitations [3] No Known Allergies Cosigned by Christiano Christianson MD at 09/11/2025 12:47 PM EDT documented in this encounter Plan of Treatment Upcoming Encounters Date Type Department Care Team (Late st Contact Info) Description 09/23/2025 10:00 AM EST Ancillary Procedure [facility] - [address] [place] [address] Scheduled Orders Name Type Priority Associated Diagnoses Orde r Schedule Lipid panel with reflex to direct LDL Lab Routine Other cardiomyopathy ([facility] V24, [facility] V28) 1 Occurrences starting 09/09/2025 until 09/09/2026 Transthoracic echocardiogram (TTE) complete with PRN contrast, bubble, strain, and 3D order panel Echocardiography Routine Other cardiomyopathy ([facility] V24, [facility] V28) 1 Occurrences starting 09/09/2025 until 09/09/2026 documented as of this encounter Visit Diagnoses Diagnosis Other cardiomyopathy ([facility] V24, [facility] V28)- Primary Palpitations LBBB (left bundle branch block) Other left bundle branch block documented in this encounter Historical Medications * This list may reflect changes made after this encounter. Lactobacillus no.46/B.animalis (PROBIOTIC-10 ORAL) Take by mouth 1 (one) time each day. added in this encounter Care Teams Precision Inspector Relationship Specialty Start Date End Date Aleida Machado FNP [address] [place] [address] PCP - General Nurse Practitioner 09/09/25 documented as of this encounter
[2025-09-14 11:45] LABS: MANUAL DIFF FLAG NO
[2025-09-14 11:51] LABS: Hematocrit 35.6 % (37.0-47.0); Hemoglobin 12.1 g/dl (12.0-16.0); Imm Gran Abs Auto 0.01 X10*3/uL (0.00-0.03); Imm Gran Pct Auto 0.2 % (0.0-0.4); Lymphocytes Absolute Auto 3.3 X10*3/uL (1.2-4.9); Mean Corpuscular HGB Conc 34.0 g/dl (31.0-35.0); Mean Corpuscular Hemoglobin 30.9 pg (27.0-33.0); Mean Corpuscular Volume 91.0 fL (80.0-98.0); NRBC Abs Auto 0.000 X10*3/uL (0.0-0.012); NRBC Pct Auto 0.0 /100WBC (0.0-0.2); Platelet Count 170 X10*3/uL (160-400); Red Blood Count 3.91 X10*6/uL (4.20-5.50); White Blood Count 6.3 X10*3/uL (4.8-10.8)
[2025-09-14 12:10] LABS: Iron 96 mcg/dL (30-160); Percent Iron Saturation 32 % (15-50); Total Iron Binding Capacity 299 mcg/dL (228-428); Unsaturated Iron Binding 203 ug/dL
[2025-09-14 12:25] LABS: Ferritin 13 ng/mL (10-250)
--- OUTSIDE RECORDS SUMMARY | 2025-09-14 14:18 | XMS_ITS | Encounter Summary ---
Author Organization [employer] Address [address] [facility] [address] [place] [address] Care Team Providers Care Gang Rider Name Role Phone Kimberly Spear MD Primary Care Provider Fiorella Medley CNP Primary Care Provider [phone] Encounter Details Date Type Department Care Team ([facility] st Contact Info) Description 01/05/2023 Orders Only [facility] [address] [place], [place] [phone] Kimberly Spear MD [address] [place], [place] [phone] Attention deficit hyperactivity disorder (ADHD), predominantly inattentive [...] disorder documented in this encounter Care Teams Gang Rider Relationship Specialty Start Date End Date Kimberly Spear MD [address] [place] [address] PCP - General Family Medicine 09/21/20 09/13/25 Fiorella Medley CNP [address] [place] [address] PCP - General Family Medicine 09/14/25 documented as of this encounter
--- OUTSIDE RECORDS SUMMARY | 2025-09-14 14:18 | XMS_ITS | Encounter Summary ---
Author Organization [employer] Address [address] [facility] [address] [place] [address] Care Team Providers Care Procedural Nurse Name Role Phone Kimberly Spear MD Primary Care Provider Fiorella Medley CNP Primary Care Provider [phone] Encounter Details Date Type Department Care Team (Late st Contact Info) Description 02/12/2025 Orders Only [facility] [address] [place], [place] [phone] [place] Social History Tobacco Use Types [...] EST) Pap Smear 1. NILM 1. NILM [facility] HPV Not Detected Undetected, Indeterminat e, Quantitative , Not Detected [facility] us Historical Provider HEALTH MAINTENANCE Edited Result - Final [facility] [address] [place] [address] documented in this encounter Visit Diagnoses Not on filedocumented in this encounter Additional Health Concerns Assessment Noted Time PHQ-9 Depression Total Score: 4 01/01/20 24 11:07 AM EST documented as of this encounter Care Teams Procedural Nurse Relationship Specialty Start Date End Date Kimberly Spear MD [address] [place] [address] PCP - General Family Medicine 09/21/20 09/13/25 Fiorella Medley CNP [address] [place] [address] PCP - General Family Medicine 09/14/25 documented as of this encounter
--- OUTSIDE RECORDS SUMMARY | 2025-09-14 14:18 | XMS_ITS | Clinical Summary ---
Author Organization [facility] [employer] Address [address] [facility] [place]eth [place] [address] Phone Care Team Providers Care Healthcare Sales Representative Name Role Phone FarhadAdrianaRufino Aleida CRESPO Primary Care Provider [phone] Allergies No known active allergies Medications methylphenidate [...] a day. 180 tablet 1 07/10/2025 Active Lactobacillus no.46/B.animali s (PROBIOTIC-10 ORAL) Take by mouth 1 (one) time each day. Active Active Problems Problem Noted Date Diagnosed Date Palpitations 09/08/2025 Assessment & Plan (09/09/2025 8:35 AM EDT): Patient denies any recurrence of palpitations. She is now only taking her Ritalin as needed. Triggers for palpitations including increased caffeine or alcohol intake, dehydration, stress, infection and untreated sleep apnea. LBBB (left bundle branch block) 06/08/2025 Assessment & Plan (09/09/2025 8:35 AM EDT): We will update her echocardiogram. Ischemic evaluation negative for any obstructive CAD. We did discuss the potential for ADJUSTER ELECTR[employer] CONTACTS therapy in the future should her LVEF continues to decline despite titration and GDMT for HFrEF. The patient understands she is only on a single medication and there are many other avenues to explore prior to eating with our EP service for AD[employer] therapy discussion. Again she is completely asymptomatic. Assessment & Plan (06/09/2025 1:12 PM EDT): Orders: Ambulatory referral to Cardiology ECG [address] Angio Heart w 3D Imaging/Function; Future Cardiomyopathy (CMS/HCC V24, CMS/HCC V28) 2024 Assessment & Plan (09/09/2025 8:35 AM EDT): Patient is completely euvolemic upon exam. She [...] in sodium chloride 0.9% 8.7 mL injection Encounters Date Type Department Care Team Description 09/09/2025 7:40 AM EDT Office Visit [facility] - [address] [place] [phone] Loreto Donovan NP Other cardiomyopathy (CMS/HCC V24, CMS/HCC V28) (Primary Dx); Palpitations; LBBB (left bundle branch block) 07/10/2025 Telephone [facility]iology [facility] [address] [place] [address] Christiano Christianson MD 06/18/2025 Telephone [facility] Cardiology [facility] [address] [facility] [address] [place] [address] Christiano Christianson MD from Last 3 Months Social History [...] Mass Index 28.29 09/09/2025 7:36 AM EDT Plan of Treatment Upcoming Encounters Date Type Department Care Team (Late st Contact Info) Description 09/23/2025 10:00 AM EST Ancillary Procedure [facility]iology [facility] - [address] [place] [phone] Health Maintenance Due Date Last Done Comments [...] - 2024-2 6 season) 2025 04/05/2021, 03/15/2021 DTaP,Tdap,and Td Vaccines (2 - Td or Tdap) 02/04/2034 02/05/2024 RSV Immunization Adult Patients (1 - 1-dose 75+ series) 2047 Hepatitis C Screening Completed 02/05/2024 Influenza Vaccine Completed 09/08/2025 HIB Vaccines Aged Out No longer eligi [...] block) Other cardiomyopathy (CMS/HCC V24, CMS/HCC V28) from Last 3 Months Results * Basic metabolic panel (07/24/2025 11:32 AM EDT) Sodium 138 133 - 145 mmol/L LAB CHEMISTRY METHOD 07/24/2025 2:42 PM EDT [facility] Potassium 4.2 3.5 - 5.5 mmol/L LAB CHEMISTRY METHOD 07/24/2025 2:42 PM EDT [facility] Chloride 106 96 - 110 mmol/L LAB CHEMISTRY METHOD 07/24/2025 2:42 PM EDT [facility] CO2 25 21 - 32 mmol/L LAB CHEMISTRY METHOD 07/24/2025 2:42 PM EDT [facility] Anion Gap 7 3 - 11 LAB CHEMISTRY METHOD 07/24/2025 2:42 PM T [facility] Glucose 89 70 - 100 mg/dL LAB CHEMISTRY METHOD 07/24/2025 2:42 PM [facility] BUN 13 5 - 25 mg/dL LAB CHEMISTRY METHOD 07/24/2025 2:42 PM T [facility] Creatinine 0.88 0.50 - 1.10 mg/dL LAB CHEMISTRY METHOD 07/24/2025 2:42 PM T [facility] eGFR 79 >=60 mL/min/1. 73m2 LAB CHEMISTRY METHOD 07/24/2025 2:42 PM EDT [facility] Comment:Calculation based on the Chronic Kidney Disease Epidemiology Collaboration (CKD-EPI) equation refit without adjustment for race. BUN/Creatinine Ratio 14.8 LAB CHEMISTRY METHOD 07/24/2025 2:42 PM T [facility] Calcium 9.5 8.5 - 10.5 mg/dL LAB CHEMISTRY METHOD 07/24/2025 2:42 PM [facility] Blood Venous blood specimen / Unknown Venipuncture / Unknown 07/24/2025 11:32 AM EDT 07/24/2025 11:32 AM EDT us Christiano Christianson MD LAB BLOOD ORDERABLES Estephania lloyd Result [facility] [address] [place] [address], from Last 3 Months Insurance [facility] Care Teams Healthcare Sales Representative Relationship Specialty Start Date End Date Aleida Machado FNP [address] [place] [address] PCP - General Nurse Practitioner 09/09/25
--- OUTSIDE RECORDS SUMMARY | 2025-09-14 14:18 | XMS_ITS | Encounter Summary ---
Author Organization [employer] Address [address] [facility] [address] [place] [address] Care Team Providers Care Scene Painter Name Role Phone Kimberly Spear MD Primary Care Provider [phone] Fiorella Medley CNP Primary Care Provider [phone] Encounter Details Date Type Department Care Team (Late st Contact Info) Description 07/02/2025 Orders Only [facility] MED [facility] PEDS [address] [place], [place] [phone] Provider, MD Eliana Social History Tobacco Use [...] us Historical Provider HEALTH MAINTENANCE Final Result documented in this encounter Visit Diagnoses Not on filedocumented in this encounter Additional Health Concerns Assessment Noted Time PHQ-9 Depression Total Score: 4 01/01/20 24 11:07 AM EST documented as of this encounter Care Teams Scene Painter Relationship Specialty Start Date End Date Kimberly Spear MD [address] [place] [address] PCP - General Family Medicine 09/21/20 09/13/25 Fiorella Medley CNP [address] [place] [address] PCP - General Family Medicine 09/14/25 documented as of this encounter
--- OUTSIDE RECORDS SUMMARY | 2025-09-14 14:18 | XMS_ITS | Encounter Summary ---
Author Organization [employer] Address [address] [facility] [address] [place] [address] Care Team Providers Care Photo Editor Name Role Phone Kimberly Spear MD Primary Care Provider [phone] Fiorella Medley CNP Primary Care Provider [phone] Encounter Details Date Type Department Care Team (Late st Contact Info) Description 06/09/2025 Orders Only [facility] MED [facility] PEDS [address] [place], [place] [phone] Provider, MD Eliana Social History Tobacco Use [...] documented as of this encounter Care Teams Photo Editor Relationship Specialty Start Date End Date Kimberly Spear MD [address] [place] [address] PCP - General Family Medicine 09/21/20 09/13/25 Fiorella Medley CNP [address] [place] [address] PCP - General Family Medicine 09/14/25 documented as of this encounter
--- OUTSIDE RECORDS SUMMARY | 2025-09-14 14:19 | XMS_ITS | Clinical Summary ---
Author Organization [employer] Address [address] [place] [address] Care Team Providers Care Vascular Nurse Name Role Phone MedleyFiorella STEPHANIE Primary Care Provider [phone] Allergies No known active allergies Medications * This document contains information received from the source organization and may not represent a complete record from that organization. methylphenidate (Ritalin) 20 MG tablet Take 1 tablet (20 mg) by mouth Once per day. 30 tablet 4 Active Methylphenidate HCl (methylphenidate ER) 36 MG [...] Department Care Team Description 07/06/2025 Orders Only [facility] [address] [place] [address] Kimberly Spear MD Attention deficit hyperactivity disorder (ADHD), predominantly inattentive type 07/02/2025 Orders Only [facility] [address], [place] [id number] ProviderEliana MD from Last 3 Months Immunizations Immunization [...] HM MAMMOGRAPHY Routine 06/29/2025 3:11 PM EDT HEPATITIS C AB W/REFL TO HCV RNA, QN, PCR Routine 02/05/2024 11:01 AM EDT PE (physical exam), annual PAP/HPV Routine 12/21/2021 12:00 AM EST from Last 3 Months or Most Recently Relevant to Health Maintenance Results * Mammography (06/29/2025 3:11 PM EDT) Anatomical Region Laterality Modality Other Historical Provider HEALTH MAINTENANCE Final Result * Hepatitis C Antibody with Reflex to HCV, RNA, Quantitative, Real-Time PCR (02/05/2024 11:01 AM EDT) Hepatitis C Antibody Nonreactive Nonreactive [facility] Comment:Antibodies to HCV no t detected; does not exclude early acuteHCV infection. Blood Venous blood specimen / Unknown 02/05/2024 11:01 AM EDT 02/05/2024 2:12 PM EDT Kimberly Spear MD LAB BLOOD ORDERABLES Final Resul t [facility] [address] [place] [phone] * PAP/HPV (12/21/2021 12:00 AM EST) Pap Smear 1. NILM 1. NILM [facility] HPV Not Detected Undetected, Indeterminat e, Quantitative , Not Detected [facility] Historical Provider HEALTH MAINTENANCE Edited Result - Final [facility] [address] [place] [address] from Last 3 Months or Most Recently Relevant to Health Maintenance Insurance [facility] H[employer] Care Teams Vascular Nurse Relationship Specialty Start Date End Date Fiorella Medley CNP [address] [place] [id number] PCP - General Family Medicine 09/14/25
== END 2025-09-14 11:16 | disposition home or self-care (01) ==
LOC: HO.BBR 11:15
PROVIDERS: PCP Nurse Practitioner Family; Visit Provider Internal Medicine Medical Oncology
DX: E83.110 Hereditary hemochromatosis (principal)
CPT/HCPCS: 36415; 82728; 83540; 85025

== ENCOUNTER 2025-09-14 11:19 | Outpatient (REF) | payer BC, SELFPAY ==
[2025-09-14 12:09] LABS: Cholesterol 162 mg/dL (<200); HDL Cholesterol 80 mg/dL (>40); Triglycerides 44 mg/dL (<150)
[2025-09-14 12:19] LABS: Alanine Aminotransferase 12 U/L (0-31); Albumin Level 4.6 g/dL (3.5-5.0); Alkaline Phosphatase 68 U/L (39-117); Anion Gap 9 (12-20); Aspartate Amino Transferase 18 U/L (5-31); Blood Urea Nitrogen 13 mg/dL (9-16); Calcium 9.1 mg/dL (8.4-10.2); Carbon Dioxide 28 mmol/L (22-29); Chloride 108 mmol/L (96-108); Cholesterol 164 mg/dL (<200); Estimated Glomerular Filt Rate > 60; HDL Cholesterol 82 mg/dL (>40); Potassium 4.0 mmol/L (3.3-5.1); Sodium 141 mmol/L (135-145); Total Protein 6.5 g/dL (6.5-8.0); Triglycerides 44 mg/dL (<150)
[2025-09-14 12:51] LABS: Folate 8.2 ng/mL (> or = 4.0); Vitamin B12 748 pg/mL (200-900)
[2025-09-14 13:21] LABS: Reflex LDLD? No
== END 2025-09-14 11:20 | disposition home or self-care (01) ==
LOC: HO.LAB 11:19
PROVIDERS: Nurse Practitioner Family; Visit Provider Nurse Practitioner Family
DX: I10 Essential (primary) hypertension (principal); I42.8 Other cardiomyopathies; F33.0 Major depressive disorder, recurrent, mild; F41.1 Generalized anxiety disorder; Z13.1 Encounter for screening for diabetes mellitus
CPT/HCPCS: 36415; 80053; 80061; 82043; 82306; 82570; 82607; 82746; 83036; 84443